=== PATIENT | male | born 1940 | race Caucasian/White ===

== ENCOUNTER 2017-03-03 07:13 | Inpatient (IN) | payer MEDICARE, BC ==
--- NOTE | 2017-03-03 07:17 | EDM.PDOC ---
ED HPI HEAD INJURY - General Chief Complaint: Head Injury Stated Complaint: BY AMBULANCE Time Seen by Provider: 03/03/17 07:17 Source of Information: Reports: Patient, EMS, Old records, RN, RN notes reviewed History Limitations: Reports: Altered mental status - History of Present Illness INITIAL COMMENTS - FREE TEXT/NARRATIVE: Arrives from the [facility] by ambulance with report that pt fell sometime during the night and was found on the floor by staff this morning. Pt does not know what time he fell, but states that he fell and hit his head. Unknown if LOC or not. Pt does not recall falling other than he knows he hit his head, he knows he was on the floor and could not get up, then he woke up on the floor when the staff found him. Pt reports tenderness to the right side of the face and head. He denies headache, N/V, or any other pain. Pt is unable to provide any further Hx. Timing/Duration: Reports: Constant Location: Reports: parietal, temporal, face Quality: Reports: ache Severity: mild Place of Occurrence: other (assisted living apt.) Improves with: none Worsens with: none Context: Reports: fall Associated Symptoms: Reports: no other symptoms - Related Data Allergies/ADRs: Allergies Allergy/AdvReac Type Severity Reaction Status Date / Time No Known Allergies Allergy Unverified 12/24/16 14:02 Home Meds: Home Meds metFORMIN HCl [Metformin HCl] 500 mg PO ATDISCHARGE 08/23/14 [History] Calcium Carbonate 600 mg PO ASDIRECTED 12/24/16 [History] Cyanocobalamin (Vitamin B-12) [B-12] 1,000 mcg SL ASDIRECTED 12/24/16 [History] Enalapril [Vasotec] 20 mg PO BID 12/24/16 [History] Hydrochlorothiazide 25 mg PO DAILY 12/24/16 [History] Metoprolol Succinate [Toprol XL 50mg] 50 mg PO DAILY 12/24/16 [History] Omeprazole [Omeprazole] 20 mg PO DAILY 12/24/16 [History] Potassium Chloride 10 meq PO ASDIRECTED 12/24/16 [History] Past Medical History HEENT History: Reports: Other (see below) Other HEENT History: diabetic eye exam no retinopathy Cardiovascular History: Reports: Hypertension Gastrointestinal History: Reports: Cirrhosis, GI bleed, Jaundice Genitourinary History: Reports: Renal disease, Other (see below) Other Genitourinary History: left renal mass, kidney disease Endocrine/Metabolic History: Reports: Diabetes, type II Hematologic History: Reports: Anemia, Iron deficiency 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) - Past Surgical History GI Surgical History: Reports: Colonoscopy, EGD, Hernia, inguinal Male Surgical History: Reports: Cystectomy, Kidney stone extraction, Lithotripsy (ESWL) Social & Family History - Family History Family Medical History: Noncontributory - Tobacco Use Smoking Status *Q: Never Smoker - Caffeine Use Caffeine Use: Reports: Coffee - Alcohol Use Alcohol Use History: Yes Alcohol Use in Last Twelve Months: No Alcohol Use Frequency: Not Used in over 1 year (History of EtOH abuse, now abstained.) - Recreational Drug Use Recreational Drug Use: No - Living Situation & Occupation Living situation: Reports: alone, assisted living Occupation: retired ED ROS GENERAL - Review of Systems Review Of Systems: ROS reveals no pertinent complaints other than HPI. ED EXAM, HEAD INJURY - Physical Exam Exam: See Below Exam Limited By: Altered mental status General Appearance: alert, no apparent distress, other (frail elderly, chronically ill apprearing) Head: normocephalic, scalp abrasions (right), scalp tenderness (right, with superficial skin tear that has dried and is unable to be repaired), facial abrasions (right with superficial skin tear), facial tenderness (right). No: active bleeding, Tolentino's Sign, flap Nexus Criteria: altered level of consciousness. No: posterior, midline cervical tenderness, evidence of intoxication, focal neurological deficit, painful distracting injuries Eyes: bilateral eye: EOMI, normal inspection, PERRL Ears: normal external exam, normal canal, hearing grossly normal Nose: normal inspection, normal mucousa, no blood Throat/Mouth: Normal lips, Normal teeth, Normal gums, Normal oropharynx, Normal voice, No airway compromise, Other (dry oral membranes) Neck: non-tender, full range of motion, normal alignment, normal inspection Respiratory: no respiratory distress, lungs clear, no accessory muscle use, decreased breath sounds Cardiovascular: normal peripheral pulses, regular rate, rhythm, other (chronic B /L lower extremity edema, improved compared to previous encounter in 12/2016) GI/Abdominal Exam (Abbreviated): normal bowel sounds, soft, non tender, no distention. No: guarding, rigid, rebound Back Exam: normal inspection, full range of motion. No: CVA tenderness (L), CVA tenderness (R), decreased range of motion, muscle spasm, paraspinal tenderness, vertebral tenderness Extremities: normal range of motion, non-tender, pelvis stable. No: bony-point tenderness, pain with movement Neurologic: glass checker II-XII nml as tested, no motor/sensory deficits, alert, normal mood/affect, other (oriented to person only) Skin: Warm/dry, Other (superficial skin tears to right scalp/face, and left elbow) - Giddings Coma Score Best Eye Response (Bouchra): (4) open spontaneously Best Verbal Response (Bouchra): (4) confused conversation Best Motor Response (Giddings): (6) obeys commands Giddings Total: 14 EKG INTERPRETATION EKG Date: 03/03/17 Time: 07:24 Rhythm: other (SR) Rate (beats/min): 91 [place]: LAD-left axis deviation P-wave: present QRS: normal ST-T: normal QT: prolonged Comparison: NA - no prior EKG Course - Vital Signs Last Recorded V/S: see RN entry for VS - Orders/Labs/Meds Orders: Active Orders 24 hr Category Date Time Status EKG 12 Lead [EKG Documentation Completion] [] STAT Care 03/03/17 07:29 Active Peripheral IV Care [RC] . DIRECTED Care 03/03/17 07:30 Active Vaccines to be Administered [RC] PER UNIT ROUTINE Care 03/03/17 07:39 Active DRUG SCREEN URINE BIORAD [URCHEM] Stat Lab 03/03/17 07:30 Uncollected UA W/MICROSCOPIC [URIN] Stat Lab 03/03/17 07:30 Uncollected Sodium Chloride 0.9% [Normal Saline] 1,000 ml Med 03/03/17 07:32 Active IV .BOLUS Sodium Chloride 0.9% [Saline Flush] Med 03/03/17 07:30 Active 10 ml FLUSH ASDIRECTED PRN Peripheral IV Insertion Adult [OM.PC] Stat Oth 03/03/17 07:29 Ordered Medication Orders Sodium Chloride (Normal Saline) 1,000 mls @ 500 mls/hr IV .BOLUS ONE Stop: 03/03/17 09:31 Last Admin: 03/03/17 08:25 Dose: 500 mls/hr Sodium Chloride (Saline Flush) 10 ml FLUSH ASDIRECTED PRN PRN Reason: Keep Vein Open Last Admin: 03/03/17 07:50 Dose: 10 ml Labs: Laboratory Tests 03/03/17 03/03/17 03/03/17 Range/Units 07:45 07:45 07:45 WBC 4.4 L (5.0-10.0) 10^3/uL RBC 2.90 L (4.6-6.2) 10^6/uL Hgb 8.9 L (14.0-18.0) g/dL Hct 26.7 L (40.0-54.0) % MCV 92.1 (80-100) fL MCH 30.7 (27.0-34.0) pg MCHC 33.3 (33.0-35.0) g/dL Plt Count 43 L* (150-450) 10^3/uL Neut % (Auto) 87.8 H (42.2-75.2) % Lymph % (Auto) 2.3 L (20.5-50.1) % Tillman % (Auto) 9.5 H (2-8) % Eos % (Auto) 0.2 L (1.0-3.0) % Baso % (Auto) 0.2 (0.0-1.0) % PT 14.4 H (9.0-12.0) SEC INR 1.4 H (0.9-1.2) APTT 32.3 (22.0-34.0) SEC Sodium 133 L (135-145) mmol/L Potassium 3.9 (3.6-5.0) mmol/L Chloride 94 L (101-111) mmol/L Carbon Dioxide 28.0 (21.0-31.0) mmol/L Anion Gap 14.9 BUN 48 H (7-18) mg/dL Creatinine 2.0 H (0.6-1.3) mg/dL Est Cr Clr Drug Dosing TNP Estimated GFR (MDRD) 33 BUN/Creatinine Ratio 24.00 Glucose 148 H (74-105) mg/dL Calcium 8.9 (8.4-10.2) mg/dl Total Bilirubin 1.4 H (0.2-1.0) mg/dL AST 60 H (10-42) IU/L ALT 31 (10-60) IU/L Alkaline Phosphatase 227 H (42-121) IU/L Ammonia (11-35) umol/L Creatine Kinase 116 (26-174) IU/L Troponin I 0.03 H* (0.00-0.02) ng/ml B-Natriuretic Peptide 50 (0-100) pg/ml Total Protein 5.5 L (6.7-8.2) g/dl Albumin 2.1 L (3.2-5.5) g/dl Globulin 3.4 Albumin/Globulin Ratio 0.62 Amylase 21 L (28-100) U/L Lipase 24 (22-51) U/L Ethyl Alcohol < 5 mg/dL 03/03/17 Range/Units 07:45 WBC (5.0-10.0) 10^3/uL RBC (4.6-6.2) 10^6/uL Hgb (14.0-18.0) g/dL Hct (40.0-54.0) % MCV (80-100) fL MCH (27.0-34.0) pg MCHC (33.0-35.0) g/dL Plt Count (150-450) 10^3/uL Neut % (Auto) (42.2-75.2) % Lymph % (Auto) (20.5-50.1) % Tillman % (Auto) (2-8) % Eos % (Auto) (1.0-3.0) % Baso % (Auto) (0.0-1.0) % PT (9.0-12.0) SEC INR (0.9-1.2) APTT (22.0-34.0) SEC Sodium (135-145) mmol/L Potassium (3.6-5.0) mmol/L Chloride (101-111) mmol/L Carbon Dioxide (21.0-31.0) mmol/L Anion Gap BUN (7-18) mg/dL Creatinine (0.6-1.3) mg/dL Est Cr Clr Drug Dosing Estimated GFR (MDRD) BUN/Creatinine Ratio Glucose (74-105) mg/dL Calcium (8.4-10.2) mg/dl Total Bilirubin (0.2-1.0) mg/dL AST (10-42) IU/L ALT (10-60) IU/L Alkaline Phosphatase (42-121) IU/L Ammonia 111 H (11-35) umol/L Creatine Kinase (26-174) IU/L Troponin I (0.00-0.02) ng/ml B-Natriuretic Peptide (0-100) pg/ml Total Protein (6.7-8.2) g/dl Albumin (3.2-5.5) g/dl Globulin Albumin/Globulin Ratio Amylase (28-100) U/L Lipase (22-51) U/L Ethyl Alcohol mg/dL Meds: Medications Generic Name Dose Route Start Last Admin Trade Name Freq PRN Reason Stop Dose Admin Sodium Chloride 1,000 mls @ 500 mls/hr 03/03/17 07:32 03/03/17 08:25 Normal Saline IV 03/03/17 09:31 500 mls/hr .BOLUS ONE Administration Sodium Chloride 10 ml 03/03/17 07:30 03/03/17 07:50 Saline Flush FLUSH 10 ml ASDIRECTED PRN Administration Keep Vein Open Discontinued Medications Generic Name Dose Route Start Last Admin Trade Name Freq PRN Reason Stop Dose Admin Bacitracin 1 dose 03/03/17 08:40 03/03/17 08:46 Bacitracin Oint 1 Gm TOP 03/03/17 08:41 1 dose ONETIME ONE Administration Diphtheria/Tetanus/Acell Pertussis 0.5 ml 03/03/17 07:39 03/03/17 08:19 Adacel IM 03/03/17 07:40 0.5 ml .ONCE ONE Administration Lactulose 20 gm 03/03/17 08:42 03/03/17 08:54 Cephulac PO 03/03/17 08:43 20 gm ONETIME ONE Administration - Radiology Interpretation Free Text/Narrative:: CXR: no acute process, see Rad. report. CT Head: no I.C. hemorrhage, no acute process per Rad. report. CT Results Date: 03/03/17 Departure - Departure Time of Disposition: 09:10 (admit to Dr. Boo) Disposition: Admitted As Inpatient 68 Condition: serious Clinical Impression: Acute hepatic encephalopathy, Pancytopenia Scalp abrasion Qualifiers: Encounter type: initial encounter Qualified Code(s): S00.01XA - Abrasion of scalp, initial encounter Abrasion of face Qualifiers: Encounter type: initial encounter Qualified Code(s): S00.81XA - Abrasion of other part of head, initial encounter Scalp contusion Qualifiers: Encounter type: initial encounter Qualified Code(s): S00.03XA - Contusion of scalp, initial encounter Contusion of face Qualifiers: Encounter type: initial encounter Qualified Code(s): S00.83XA - Contusion of other part of head, initial encounter Contusion of right shoulder Qualifiers: Encounter type: initial encounter Qualified Code(s): S40.011A - Contusion of right shoulder, initial encounter Skin tear of left elbow without complication Qualifiers: Encounter type: initial encounter Qualified Code(s): S51.012A - Laceration without foreign body of left elbow, initial encounter Forms: ED Department Discharge - My Orders Last 24 Hours: My Active Orders 03/03/17 07:29 EKG 12 Lead [EKG Documentation Completion] [RC] STAT Peripheral IV Insertion Adult [OM.PC] Stat 03/03/17 07:30 Peripheral IV Care [RC] . DIRECTED DRUG SCREEN URINE BIORAD [URCHEM] Stat UA W/MICROSCOPIC [URIN] Stat Sodium Chloride 0.9% [Saline Flush] 10 ml FLUSH ASDIRECTED PRN 03/03/17 07:32 Sodium Chloride 0.9% [Normal Saline] 1,000 ml IV .BOLUS 03/03/17 07:39 Vaccines to be Administered [RC] PER UNIT ROUTINE - Assessment/Plan Last 24 Hours: My Active Orders 03/03/17 07:29 EKG 12 Lead [EKG Documentation Completion] [RC] STAT Peripheral IV Insertion Adult [OM.PC] Stat 03/03/17 07:30 Peripheral IV Care [RC] . DIRECTED DRUG SCREEN URINE BIORAD [URCHEM] Stat UA W/MICROSCOPIC [URIN] Stat Sodium Chloride 0.9% [Saline Flush] 10 ml FLUSH ASDIRECTED PRN 03/03/17 07:32 Sodium Chloride 0.9% [Normal Saline] 1,000 ml IV .BOLUS 03/03/17 07:39 Vaccines to be Administered [RC] PER UNIT ROUTINE
[2017-03-03] MEDS ORDERED: Sodium Chloride 0.9% 1,000 ML IV ONE (07:32)
[2017-03-03] MEDS ORDERED: Diphtheria,Pertussis(Acell),Tetanus Vaccine 0.5 ML SDV IM ONE (07:39)
[2017-03-03] MEDS: Sodium Chloride 0.9% 10 ML Syringe FLUSH PRN (07:50)
[2017-03-03 08:06] LABS: CHLORIDE,CL 94 mmol/L (101-111); SODIUM,NA 133 mmol/L (135-145)
--- NOTE | 2017-03-03 08:09 | CR ---
Clinical history: 77-year-old male resident half-way found unresponsive on the floor. Interpretation: *AP chest reveals some bronchitic reactive changes and subtle asymmetric patchy ling ular infiltrate (aspiration?). Left supraclavicular central venous port, line crossing mediastinum. Normal cardiac silhouette without alveolar edema or dependent effusion. No lung mass, hilar lymphadenopathy or other focal lobar infiltrate/atelectasis. No pneumothorax.
--- NOTE | 2017-03-03 08:16 | CT ---
Clinical history: 77-year-old male resident of assisted found unresponsive on the floor (fall an d head injury). Scan technique: Volume acquisition of data emergency unenhanced CT scan of the head obtained with pa tient lying supine on the Siemens multi slice CT scanner [facility]. All data archived in the PACS system for storage and study (bone/brain windows). Interpretation: 1. Isolated small retention cyst or polyp in the right maxillary antrum. No acute inflammation. 2. Uniformly thick bony calvarium without sign of skull fracture, underlying brain contusion or epid ural/subdural hematoma. 3. Multiple scattered areas of decreased attenuation throughout the periventricular white matter bot h cerebral hemispheres characteristic of microvascular ischemic infarcts. Atrophy. 4. No supratentorial or posterior fossa mass lesion. No hydrocephalus. 5. No signs of acute intracerebral/intraventricular/subarachnoid bleed. 6. Brainstem unremarkable but asymmetric focal area of infarct cerebellum, on the left. CONCLUSION: Abnormal. Multi-infarct ischemic disease (no comparison exams). No sign of skull fractur e, closed head trauma, intracranial mass, hydrocephalus or bleed. Maxillary cyst.
[2017-03-03] MEDS ORDERED: Bacitracin Oint 1 GM U/D Packet TOP ONE (08:40)
[2017-03-03] MEDS ORDERED: Lactulose Soln 10 GM/15 ML 30 ML UD Cup PO ONE (08:42)
--- NOTE | 2017-03-03 10:29 | PCM.HP ---
H&P History of Present Illness - General Date of Service: 03/03/17 Admit Problem/Dx: Admission Diagnosis/Problem Admission Diagnosis/Problem Encephalopathy Source of Information: Patient History Limitations: Reports: Altered Mental Status - History of Present Illness Initial Comments - Free Text/Narative: Mr. Patel is a 77 year old male was brought in today because of altered mental status. when he was seen in the clinic, he was noted to be drowsy and still able to give some history. patient recollects that he fell in the bathroom last night, hit his head on something. Was found in the floor this morning and noticed some confusion. When asked, he reports that he is in [facility]. On encounter with him, he denies any headache, nausea, chest pain, abdominal pain. he recently had radiation as part of his chemoradiation treatment for his duodenal cancer. recent labs showed Bicytopenia with low WBC and hemoglobin and normal platelets. On further review of labs, he had thrombocytopenia last . He has some briuse on the the left forearm which the ER provider mentioned is nothing new. On discussion with ER MD, patient was seen in the ER in the past was noted to have ascites, GI bleed and leg edema and that time he was then diagnosed with duodenal cancer when patient was shifted to [facility]. currently, abdomen is non tender and non distended and legs are not swollen compared to before. Head Pain Score (Numeric/FACES): 8 - Related Data Allergies/Adverse Reactions: Allergies Allergy/AdvReac Type Severity Reaction Status Date / Time No Known Allergies Allergy Verified 05/27/17 07:57 Home Medications: Home Meds Potassium Chloride 20 meq PO DAILY 12/24/16 [History] Bumetanide [Bumex] 1 mg PO DAILY 03/03/17 [History] Spironolactone [Aldactone] 25 mg PO BID 03/03/17 [History] Folic Acid 1 mg PO DAILY 05/15/17 [History] Iron Polysaccharide Complex [Ferrex 150] 150 mg PO DAILY 05/15/17 [History] Lactulose [Cephulac] 15 gm PO TID 05/15/17 [History] Omeprazole [Omeprazole] 20 mg PO ACBREAKFAST 05/15/17 [History] Insulin Aspart [Novolog Flexpen] 3 units SQ WITHDINNER 05/17/17 [History] Calcium Carbonate [Tums] 500 mg PO BID PRN 05/19/17 [History] Docusate Sodium [Colace] 100 mg PO BID 05/19/17 [History] Insulin Glarg,Human.Rec.Analog [Lantus] 18 units SQ BEDTIME 05/19/17 [History] Moxifloxacin [Vigamox 0.5% Ophth Soln] 1 drop EYEBOTH QID 05/19/17 [History] Nystatin [Nystop] 1 gm TOP BID PRN 05/19/17 [History] Calcium Polycarbophil [Fibercon] 1 tab PO BID 05/20/17 [History] Ketorolac [Acular 0.5% Ophth Soln] 1 drop EYELF BID 05/22/17 [History] Past Medical History HEENT History: Reports: Other (See Below) Other HEENT History: diabetic eye exam no retinopathy Cardiovascular History: Reports: Hypertension Gastrointestinal History: Reports: Cirrhosis, GI Bleed, Jaundice Genitourinary History: Reports: Renal Disease, Other (See Below) Other Genitourinary History: left renal mass, kidney disease Endocrine/Metabolic History: Reports: Diabetes, Type II Hematologic History: Reports: Anemia, Iron Deficiency 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 Just finished round of chemo and radiation 02/27/2017 - Past Surgical History GI Surgical History: Reports: Colonoscopy, EGD, Hernia, Inguinal Male Surgical History: Reports: Cystectomy, Kidney Stone Extraction, Lithotripsy ([facility]) Social & Family History - Family History Family Medical History: Noncontributory - Tobacco Use Smoking Status *Q: Never Smoker - Caffeine Use Caffeine Use: Reports: Coffee - Recreational Drug Use Recreational Drug Use: No - Living Situation & Occupation Living situation: Reports: Alone, Assisted Living Occupation: Retired H&P Review of Systems - Review of Systems: Review Of Systems: Unable To Obtain Exam - Exam Exam: See Below - Vital Signs Vital Signs: Last Vital Signs Temp 36.6 C 03/03/17 09:53 Pulse 88 03/03/17 09:53 Resp 20 03/03/17 09:53 BP 148/63 H 03/03/17 09:53 Pulse Ox 97 03/03/17 09:53 Weight: 95.254 kg - Exam Quality Assessment: Skin Breakdown General: Other (drowsy but able to answer questions) HEENT: Conjunctiva Clear, EOMI, Hearing Intact Lungs: Normal Respiratory Effort Cardiovascular: Regular Rate, Regular Rhythm Abdomen: Normal Bowel Sounds, Soft, Other (no distention nor tenderness) Extremities: Other (no pitting edema; hyperpigmentation on distal aspect of both lower extremities) Peripheral Pulses: 0: Carotid (R) Neuro Extensive - Mental Status: Disorientation to Place - Patient Data Result Diagrams: 03/06/17 05:40 03/06/17 05:40 *Q Meaningful Use (ADM) - VTE *Q VTE Criteria *Q: VTE Anticoagulation Contraindications: Med/TX Not Indicated/Need - Stroke *Q Stroke Criteria *Q: - AMI *Q AMI Criteria *Q: Problem List Initiated/Reviewed/Updated: Yes Orders Last 24hrs: Active Orders 24 hr Category Date Time Status Patient Status [ADT] Routine ADT 03/03/17 10:12 Ordered Blood Glucose Check, Bedside [RC] QIDACANDBED Care 03/03/17 10:17 Ordered Intake and Output Strict [RC] ASDIRECTED Care 03/03/17 10:18 Ordered Neuro Check [RC] Q4HR Care 03/03/17 10:17 Ordered Oxygen Therapy [RC] PRN Care 03/03/17 10:12 Ordered Up With Assistance [RC] ASDIRECTED Care 03/03/17 10:12 Ordered VTE/DVT Education [RC] PER UNIT ROUTINE Care 03/03/17 10:12 Ordered Vital Signs [RC] Q4H Care 03/03/17 10:12 Ordered Weight, Daily [Height and Weight] [RC] DAILY Care 03/03/17 10:17 Ordered CBC WITH AUTO DIFF [HEME] Routine Lab 03/04/17 06:00 Ordered CULTURE BLOOD [BC] Stat Lab 03/03/17 10:14 Ordered CULTURE BLOOD [BC] Stat Lab 03/03/17 10:14 Ordered Bumetanide [Bumex] Med 03/04/17 09:00 Ordered 1 mg PO DAILY Calcium Carbonate Med 03/03/17 10:30 Ordered 500 mg PO ASDIRECTED Calcium Polycarbophil [Calcium Polycarbophil] Med 03/03/17 21:00 Ordered 1 tab PO BID Ferrous Sulfate Med 03/04/17 09:00 Ordered 1 tab PO DAILY Insulin Glargine,Hum.Rec.Anlog [Vernar Kwikpen U-100] Med 03/04/17 09:00 Ordered 25 units SUBCUT DAILY Lactulose [Lactulose] Med 03/03/17 21:00 Ordered 15 ml PO BID Nystatin Med 03/03/17 13:00 Ordered 5 ml PO QID Pantoprazole [ProTONIX] Med 03/04/17 09:00 Ordered 1 tab PO DAILY Potassium Chloride [Potassium Chloride] Med 03/04/17 09:00 Ordered 20 meq PO DAILY Spironolactone [Aldactone] Med 03/03/17 21:00 Ordered 25 mg PO BID Anticoagulation Contraindications VTE [AST] Per Unit Ot 03/03/17 10:12 Ordered Routine Blood Culture x2 Reflex Set [OM.PC] Stat Ot 03/03/17 10:14 Ordered Medication Orders Bumetanide (Bumex) 1 mg PO DAILY [facility] Ferrous Sulfate (Ferrous Sulfate) mg PO DAILY [facility] Non-Formulary Medication (Calcium Carbonate) 500 mg PO ASDIRECTED [facility] Non-Formulary Medication (Calcium Polycarbophil [Calcium Polycarbophil]) 1 tab PO BID [facility] Non-Formulary Medication (Insulin Glargine,Hum.Rec.Anlog [Basaglar Kwikpen U-100 ]) 25 units SUBCUT DAILY [facility] Non-Formulary Medication (Lactulose [Lactulose]) 15 ml PO BID [facility] Non-Formulary Medication (Nystatin) 5 ml PO QID [facility] Non-Formulary Medication (Potassium Chloride [Potassium Chloride]) 20 meq PO DAILY [facility] Pantoprazole Sodium (Protonix) mg PO DAILY [facility] Sodium Chloride (Saline Flush) 10 ml FLUSH ASDIRECTED PRN PRN Reason: Keep Vein Open Last Admin: 03/03/17 07:50 Dose: 10 ml Spironolactone (Aldactone) 25 mg PO BID [facility] Assessment/Plan Comment:: Altered mental status - most likely hepatic encephalopahy: CT scan normal; no signs of hypoglycemia ; ammonia elevated at 111, previous ammonia level was 20; he was already given lactulose in the emergency room, monitor for bowel movement; he was on lactulose BID based on home meds, may need to be incease to aim for around 3 stools in a day - blood cultures and urinalysis ordered - neurochecks Pancytopenia; platelets has decreased from baseline, monitor for signs of bleeding;recheck CBC chronic liver disease; on Bumex and aldactone, resum,e; do daily weights and strict input and output; fluid restrictions Diabetes Mellitus; diabetic diet; glucochecks before meals and bedtime;resume insulin HIstory of duodenal cancer: outpatient follow up with Dr. Caballero DVT Prophylaxis: anticoagulation contraindicated due to thrombocytopenia; do BALDEMAR hose instead
[2017-03-03] MEDS ORDERED: Calcium Carbonate 500 MG Tab.Chew PO SCH (10:45)
[2017-03-03] MEDS: Insulin Aspart 100 Units/ML 3 ML Pen SUBCUT SCH ×3 (13:38→21:02)
[2017-03-03] MEDS: Nystatin Susp 100,000 Unit/ML 5 ML UD Cup PO SCH ×3 (13:39→20:48)
[2017-03-03] MEDS: Spironolactone 25 MG Tab PO SCH (20:44)
[2017-03-03] MEDS: Lactulose Soln 10 GM/15 ML 30 ML UD Cup PO SCH (20:44)
[2017-03-03] MEDS: Calcium Polycarbophil 625 MG Tab PO SCH (20:44)
[2017-03-03] MEDS: Nystatin Topical Powder 30 GM Bottle TOP SCH (20:50)
[2017-03-04] MEDS: Pantoprazole 40 MG Tab.CR PO SCH (05:44)
[2017-03-04] MEDS: Insulin Aspart 100 Units/ML 3 ML Pen SUBCUT SCH ×4 (08:37→21:45)
[2017-03-04] MEDS: Calcium Carbonate 500 MG Tab.Chew PO SCH (08:38)
[2017-03-04] MEDS: Calcium Polycarbophil 625 MG Tab PO SCH ×2 (08:38→21:44)
[2017-03-04] MEDS: Potassium Chloride 10 MEQ Tab.ER PO SCH (08:38)
[2017-03-04] MEDS: Bumetanide 1 MG Tab PO SCH (08:39)
[2017-03-04] MEDS: Spironolactone 25 MG Tab PO SCH ×2 (08:39→21:44)
[2017-03-04] MEDS: Ferrous Sulfate 325 MG Tab PO SCH (08:39)
[2017-03-04] MEDS: Lactulose Soln 10 GM/15 ML 30 ML UD Cup PO SCH ×3 (08:39→21:43)
[2017-03-04] MEDS: Nystatin Topical Powder 30 GM Bottle TOP SCH ×2 (08:40→21:45)
[2017-03-04] MEDS: Nystatin Susp 100,000 Unit/ML 5 ML UD Cup PO SCH ×4 (08:45→21:44)
[2017-03-04] MEDS: Insulin Detemir 100 Units/ML 3 ML Pen SUBCUT SCH (08:45)
--- NOTE | 2017-03-04 10:55 | PCM.PN ---
- General Info Date of Service: 03/04/17 Admission Dx/Problem (Free Text): Patient is more awake today; he reports that he had a bowel movement yesterday, but nursing report that he had two bowel movements; he denies any chest pain nor abdominal pain; he recollects that the reason why he is in the hospital is that he fell in the bathroom; Talked with the nurse of [facility] in [place] and she reported that when mr. Patel was there, he used to ambulate well with the aid of the walker. He is oriented most of the time, with no problems with the memory. he has been having normal bowel movements then. - Patient Data Vitals - most recent: Last Vital Signs Temp 37.0 C 03/04/17 07:00 Pulse 86 03/04/17 07:00 Resp 20 03/04/17 07:00 BP 134/54 L 03/04/17 07:00 Pulse Ox 98 03/04/17 07:00 Weight - most recent: 76.294 kg Med Orders - Current: Current Medications Bumetanide (Bumex) 1 mg PO DAILY [facility] Last Admin: 03/04/17 08:39 Dose: 1 mg Calcium Carbonate/Glycine (Tums) 500 mg PO DAILY [facility] Last Admin: 03/04/17 08:38 Dose: 500 mg Calcium Polycarbophil (Fibercon) 625 mg PO BID [facility] Last Admin: 03/04/17 08:38 Dose: 625 mg Ferrous Sulfate (Ferrous Sulfate) 325 mg PO DAILY [facility] Last Admin: 03/04/17 08:39 Dose: 325 mg Insulin Aspart (Novolog) 0 unit SUBCUT QIDACANDBED [facility] PRN Reason: Protocol Last Admin: 03/04/17 08:37 Dose: Not Given Insulin Detemir (Levemir) 25 unit SUBCUT DAILY [facility] Last Admin: 03/04/17 08:45 Dose: 25 units Lactulose (Cephulac) 15 gm PO TID [facility] Nystatin (Mycostatin) 5 ml PO QID [facility] Stop: 04/02/17 23:59 Last Admin: 03/04/17 08:45 Dose: 5 ml Nystatin (Nystop) 1 gm TOP BID [facility] Last Admin: 03/04/17 08:40 Dose: 1 applic Pantoprazole Sodium (Protonix) 40 mg PO ACBRK [facility] Last Admin: 03/04/17 05:44 Dose: 40 mg Potassium Chloride (Klor-Con 10) 20 meq PO DAILY [facility] Last Admin: 03/04/17 08:38 Dose: 20 meq Sodium Chloride (Saline Flush) 10 ml FLUSH ASDIRECTED PRN PRN Reason: Keep Vein Open Last Admin: 03/03/17 07:50 Dose: 10 ml Spironolactone (Aldactone) 25 mg PO BID [facility] Last Admin: 03/04/17 08:39 Dose: 25 mg Discontinued Medications Bacitracin (Bacitracin Oint 1 Gm) 1 dose TOP ONETIME ONE Stop: 03/03/17 08:41 Last Admin: 03/03/17 08:46 Dose: 1 dose Calcium Carbonate/Glycine (Tums) 500 mg PO ASDIRECTED [facility] Diphtheria/Tetanus/Acell Pertussis (Adacel) 0.5 ml IM .ONCE ONE Stop: 03/03/17 07:40 Last Admin: 03/03/17 08:19 Dose: 0.5 ml Sodium Chloride (Normal Saline) 1,000 mls @ 500 mls/hr IV .BOLUS ONE Stop: 03/03/17 09:31 Last Admin: 03/03/17 08:25 Dose: 500 mls/hr Lactulose (Cephulac) 20 gm PO ONETIME ONE Stop: 03/03/17 08:43 Last Admin: 03/03/17 08:54 Dose: 20 gm Lactulose (Cephulac) 15 gm PO BID [facility] Last Admin: 03/04/17 08:39 Dose: 15 gm - Exam General: alert, oriented Lungs: Normal respiratory effort Cardiovascular: Regular Rate, Regular Rhythm Abdomen: bowel sounds present, soft, no tenderness Skin: other (skin tear on the right temporal area) - Problem List Review Problem List Initiated/Reviewed/Updated: Yes - My Orders Last 24 Hours: My Active Orders 03/04/17 14:00 Lactulose [Cephulac] 15 gm PO TID - Plan Plan:: Altered mental status - most likely hepatic encephalopahy: CT scan normal; no signs of hypoglycemia ; ammonia elevated at 111, previous ammonia level was 20; - increase lactulose to TID - infectious work up was ordered; await results - coags have been pancytopenic but stable History of Fall - refer to PT for ambulation Pancytopenia; platelets has decreased from baseline, monitor for signs of bleeding;recheck CBC chronic liver disease; on Bumex and aldactone, resume; do daily weights and strict input and output; fluid restrictions Diabetes Mellitus; diabetic diet; glucochecks before meals and bedtime;resume insulin 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
[2017-03-05] MEDS: Sodium Chloride 0.9% 10 ML Syringe FLUSH PRN (00:34)
[2017-03-05] MEDS: Pantoprazole 40 MG Tab.CR PO SCH (05:49)
[2017-03-05] MEDS: Insulin Aspart 100 Units/ML 3 ML Pen SUBCUT SCH ×4 (09:34→22:29)
[2017-03-05] MEDS: Lactulose Soln 10 GM/15 ML 30 ML UD Cup PO SCH ×3 (09:34→22:14)
[2017-03-05] MEDS: Potassium Chloride 10 MEQ Tab.ER PO SCH (09:37)
[2017-03-05] MEDS: Ferrous Sulfate 325 MG Tab PO SCH (09:37)
[2017-03-05] MEDS: Calcium Polycarbophil 625 MG Tab PO SCH ×2 (09:37→22:13)
[2017-03-05] MEDS: Bumetanide 1 MG Tab PO SCH (09:37)
[2017-03-05] MEDS: Insulin Detemir 100 Units/ML 3 ML Pen SUBCUT SCH (09:37)
[2017-03-05] MEDS: Spironolactone 25 MG Tab PO SCH ×2 (09:37→22:13)
[2017-03-05] MEDS: Nystatin Susp 100,000 Unit/ML 5 ML UD Cup PO SCH ×4 (09:37→22:13)
[2017-03-05] MEDS: Calcium Carbonate 500 MG Tab.Chew PO SCH (09:37)
[2017-03-05] MEDS: Nystatin Topical Powder 30 GM Bottle TOP SCH ×2 (09:38→22:15)
[2017-03-05] MEDS: Sodium Chloride 0.9% 10 ML Syringe IV SCH ×2 (09:38→22:23)
--- NOTE | 2017-03-05 11:02 | PCM.PN ---
- General Info Date of Service: 03/05/17 Admission Dx/Problem (Free Text): admitted after a fall With an acute encephalopathy Subjective Update: feeling well today, he has been off and walking with a walker with the help of physical therapy, Having bowel movements has indwelling Urinary catheter no apparent fever, no complaints of chills abdomen pain No shortness of breath, no chest pain - Review of Systems General: Reports: No Symptoms HEENT: Reports: no symptoms Pulmonary: Denies: shortness of breath Cardiovascular: Denies: Chest Pain Gastrointestinal: Denies: Abdominal pain Neurological: Reports: Difficulty Walking (Need a walker). Denies: Confusion - Patient Data Vitals - most recent: Last Vital Signs Temp 36.4 C 03/05/17 07:00 Pulse 89 03/05/17 07:00 Resp 20 03/05/17 07:00 BP 130/54 L 03/05/17 07:00 Pulse Ox 99 03/05/17 07:00 Weight - most recent: 75.614 kg I&O - last 24 hours: Intake & Output 03/04/17 03/05/17 03/05/17 22:59 06:59 14:59 Intake Total 150 Output Total 1000 Balance -850 Lab Results last 24 hrs: Laboratory Results - last 24 hr 03/04/17 03/04/17 03/04/17 Range/Units 07:42 11:03 17:05 WBC (5.0-10.0) 10^3/uL RBC (4.6-6.2) 10^6/uL Hgb (14.0-18.0) g/dL Hct (40.0-54.0) % MCV (80-100) fL MCH (27.0-34.0) pg MCHC (33.0-35.0) g/dL Plt Count (150-450) 10^3/uL POC Glucose 115 H 203 H 165 H (83-110) mg/dl 03/04/17 03/05/17 03/05/17 Range/Units 21:15 06:53 07:54 WBC 3.8 L (5.0-10.0) 10^3/uL RBC 2.72 L (4.6-6.2) 10^6/uL Hgb 8.4 L (14.0-18.0) g/dL Hct 25.7 L (40.0-54.0) % MCV 94.5 (80-100) fL MCH 30.9 (27.0-34.0) pg MCHC 32.7 L (33.0-35.0) g/dL Plt Count 68 L (150-450) 10^3/uL POC Glucose 95 72 L (83-110) mg/dl Nikos Results last 24 hrs: Microbiology 03/03/17 10:40 Aerobic Blood Culture - Preliminary Blood - Venous - Lab Draw NO GROWTH AFTER 2 DAYS Anaerobic Blood Culture - Final 03/03/17 10:35 Aerobic Blood Culture - Preliminary Blood - Venous NO GROWTH AFTER 2 DAYS Anaerobic Blood Culture - Preliminary NO GROWTH AFTER 2 DAYS Med Orders - Current: Current Medications Bumetanide (Bumex) 1 mg PO DAILY [facility] Last Admin: 03/05/17 09:37 Dose: 1 mg Calcium Carbonate/Glycine (Tums) 500 mg PO DAILY [facility] Last Admin: 03/05/17 09:37 Dose: 500 mg Calcium Polycarbophil (Fibercon) 625 mg PO BID [facility] Last Admin: 03/05/17 09:37 Dose: 625 mg Ferrous Sulfate (Ferrous Sulfate) 325 mg PO DAILY [facility] Last Admin: 03/05/17 09:37 Dose: 325 mg Insulin Aspart (Novolog) 0 unit SUBCUT QIDACANDBED [facility] PRN Reason: Protocol Last Admin: 03/05/17 09:34 Dose: Not Given Insulin Detemir (Levemir) 25 unit SUBCUT DAILY [facility] Last Admin: 03/05/17 09:37 Dose: 25 units Lactulose (Cephulac) 15 gm PO TID [facility] Last Admin: 03/05/17 09:34 Dose: 15 gm Nystatin (Mycostatin) 5 ml PO QID [facility] Stop: 04/02/17 23:59 Last Admin: 03/05/17 09:37 Dose: 5 ml Nystatin (Nystop) 1 gm TOP BID [facility] Last Admin: 03/05/17 09:38 Dose: 1 applic Pantoprazole Sodium (Protonix) 40 mg PO ACBRK [facility] Last Admin: 03/05/17 05:49 Dose: 40 mg Potassium Chloride (Klor-Con 10) 20 meq PO DAILY [facility] Last Admin: 03/05/17 09:37 Dose: 20 meq Sodium Chloride (Saline Flush) 10 ml FLUSH ASDIRECTED PRN PRN Reason: Keep Vein Open Last Admin: 03/05/17 00:34 Dose: 10 ml Sodium Chloride (Saline Flush) 10 ml IV BID [facility] Last Admin: 03/05/17 09:38 Dose: 10 ml Spironolactone (Aldactone) 25 mg PO BID [facility] Last Admin: 03/05/17 09:37 Dose: 25 mg Discontinued Medications Bacitracin (Bacitracin Oint 1 Gm) 1 dose TOP ONETIME ONE Stop: 03/03/17 08:41 Last Admin: 03/03/17 08:46 Dose: 1 dose Calcium Carbonate/Glycine (Tums) 500 mg PO ASDIRECTED [facility] Diphtheria/Tetanus/Acell Pertussis (Adacel) 0.5 ml IM .ONCE ONE Stop: 03/03/17 07:40 Last Admin: 03/03/17 08:19 Dose: 0.5 ml Sodium Chloride (Normal Saline) 1,000 mls @ 500 mls/hr IV .BOLUS ONE Stop: 03/03/17 09:31 Last Admin: 03/03/17 08:25 Dose: 500 mls/hr Lactulose (Cephulac) 20 gm PO ONETIME ONE Stop: 03/03/17 08:43 Last Admin: 03/03/17 08:54 Dose: 20 gm Lactulose (Cephulac) 15 gm PO BID [facility] Last Admin: 03/04/17 08:39 Dose: 15 gm - Exam General: alert, oriented HEENT: Other (right facial abrasion) Neck: supple Lungs: Decreased breath sounds Cardiovascular: Regular Rate, Regular Rhythm Extremities: no edema Neurological: no new focal deficit Psy/Mental Status: alert, normal affect, normal mood - Problem List & Annotations (1) Acute hepatic encephalopathy SNOMED Code(s): 93589288 Code(s): K72.00 - ACUTE AND SUBACUTE HEPATIC FAILURE WITHOUT COMA Status: Acute Current Visit: Yes (2) Scalp abrasion SNOMED Code(s): 295457499 Code(s): S00.01XA - ABRASION OF SCALP, INITIAL ENCOUNTER Status: Acute Current Visit: Yes Qualifiers: Encounter type: initial encounter Qualified Code(s): S00.01XA - Abrasion of scalp, initial encounter - Problem List Review Problem List Initiated/Reviewed/Updated: Yes - My Orders Last 24 Hours: My Active Orders 03/04/17 19:50 Communication Order [RC] 08,03/05/17 09:00 Sodium Chloride 0.9% [Saline Flush] 10 ml IV BID 03/05/17 10:52 Remove Blankenship Catheter [Urinary Catheter Removal] [RC] Per Unit Routine 03/05/17 10:55 OT Evaluation and Treatment [CONS] Routine 03/06/17 05:15 BASIC METABOLIC PANEL,BMP [CHEM] AM CBC WITH AUTO DIFF [HEME] AM - Plan Plan:: Altered mental status - most likely acute hepatic encephalopahy: CT scan normal; no signs of hypoglycemia; ammonia elevated at 111, previous ammonia level was 20; - improved by now - continue with increased lactulose to TID - infectious work up: blood cultures negative - coags have been pancytopenic but stable History of Fall, decision about appropriate discharge planning - PT for ambulation - request ot evaluation Pancytopenia; monitor for signs of bleeding;recheck CBC in the morning chronic liver disease; on Bumex and aldactone, remove Blankenship catheter today Diabetes Mellitus; diabetic diet; glucochecks before meals and bedtime;continue insulin 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
[2017-03-06] MEDS: Pantoprazole 40 MG Tab.CR PO SCH (06:21)
[2017-03-06] MEDS: Insulin Aspart 100 Units/ML 3 ML Pen SUBCUT SCH (07:56)
[2017-03-06] MEDS: Calcium Polycarbophil 625 MG Tab PO SCH (08:43)
[2017-03-06] MEDS: Spironolactone 25 MG Tab PO SCH (08:43)
[2017-03-06] MEDS: Ferrous Sulfate 325 MG Tab PO SCH (08:43)
[2017-03-06] MEDS: Bumetanide 1 MG Tab PO SCH (08:43)
[2017-03-06] MEDS: Nystatin Susp 100,000 Unit/ML 5 ML UD Cup PO SCH (08:43)
[2017-03-06] MEDS: Nystatin Topical Powder 30 GM Bottle TOP SCH (08:44)
[2017-03-06] MEDS: Potassium Chloride 10 MEQ Tab.ER PO SCH (08:44)
[2017-03-06] MEDS: Calcium Carbonate 500 MG Tab.Chew PO SCH (08:44)
[2017-03-06] MEDS: Lactulose Soln 10 GM/15 ML 30 ML UD Cup PO SCH (08:44)
[2017-03-06] MEDS: Sodium Chloride 0.9% 10 ML Syringe IV SCH (08:44)
[2017-03-06] MEDS: Insulin Detemir 100 Units/ML 3 ML Pen SUBCUT SCH (08:45)
--- NOTE | 2017-03-06 09:09 | PCM.DCSUM1 ---
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 - Discharge Data Discharge Date: 03/06/17 Discharge Disposition: DC/[facility] to [facility] Condition: Stable - Discharge Diagnosis/Problem(s) (1) Acute hepatic encephalopathy SNOMED Code(s): 38465789 ICD Code: K72.00 - ACUTE AND SUBACUTE HEPATIC FAILURE WITHOUT COMA Status: Acute Current Visit: Yes (2) Scalp abrasion SNOMED Code(s): 279969355 ICD Code: S00.01XA - ABRASION OF SCALP, INITIAL ENCOUNTER Status: Acute Current Visit: Yes Qualifiers: Encounter type: initial encounter Qualified Code(s): S00.01XA - Abrasion of scalp, initial encounter - Patient Summary/Data Consults: Consultations 03/05/17 10:55 OT Evaluation and Treatment [CONS] Routine - Patient Instructions Diet: Heart Healthy Diet Activity: As Tolerated - Discharge Plan Prescriptions/Med Rec: Lactulose [Cephulac] 15 gm PO TID #240 ml Home Medications: Home Meds Calcium Carbonate 500 mg PO ASDIRECTED 12/24/16 [History] Potassium Chloride 20 meq PO DAILY 12/24/16 [History] Bumetanide [Bumex] 1 mg PO DAILY 03/03/17 [History] Calcium Polycarbophil 1 tab PO BID 03/03/17 [History] Ferrous Sulfate 1 tab PO DAILY 03/03/17 [History] Insulin Glargine,Hum.Rec.Anlog [Basaglar Kwikpen U-100] 25 units SUBCUT DAILY [History] Nystatin 5 ml PO QID MDD end 03/12/2017 03/03/17 [History] Pantoprazole Sodium [Protonix] 1 tab PO DAILY 03/03/17 [History] Spironolactone [Aldactone] 25 mg PO BID 03/03/17 [History] Lactulose [Cephulac] 15 gm PO TID #240 ml 03/06/17 [Rx] - Discharge Summary/Plan Comment DC Time >30 min.: No - Patient Data Vitals - Most Recent: Last Vital Signs Temp 37.0 C 03/05/17 19:41 Pulse 83 03/06/17 04:00 Resp 20 03/06/17 04:00 BP 116/56 L 03/06/17 04:00 Pulse Ox 100 03/06/17 04:00 Weight - Most Recent: 74.843 kg I&O - Last 24 hours: Intake & Output 03/05/17 03/06/17 03/06/17 22:59 06:59 14:59 Intake Total 600 125 Output Total 600 Balance 0 125 Lab Results - Last 24 hrs: Laboratory Results - last 24 hr 03/05/17 03/05/17 03/05/17 Range/Units 11:03 16:58 21:11 WBC (5.0-10.0) 10^3/uL RBC (4.6-6.2) 10^6/uL Hgb (14.0-18.0) g/dL Hct (40.0-54.0) % MCV (80-100) fL MCH (27.0-34.0) pg MCHC (33.0-35.0) g/dL Plt Count (150-450) 10^3/uL Neut % (Auto) (42.2-75.2) % Lymph % (Auto) (20.5-50.1) % Amelia % (Auto) (2-8) % Eos % (Auto) (1.0-3.0) % Baso % (Auto) (0.0-1.0) % Sodium (135-145) mmol/L Potassium (3.6-5.0) mmol/L Chloride (101-111) mmol/L Carbon Dioxide (21.0-31.0) mmol/L Anion Gap BUN (7-18) mg/dL Creatinine (0.6-1.3) mg/dL Est Cr Clr Drug Dosing mL/min Estimated GFR (MDRD) Glucose (74-105) mg/dL POC Glucose 172 H 91 88 (83-110) mg/dl Calcium (8.4-10.2) mg/dl Ammonia (11-35) umol/L 03/06/17 03/06/17 03/06/17 Range/Units 05:40 05:40 07:47 WBC 4.6 L (5.0-10.0) 10^3/uL RBC 3.04 L (4.6-6.2) 10^6/uL Hgb 9.5 L (14.0-18.0) g/dL Hct 28.8 L (40.0-54.0) % MCV 94.7 (80-100) fL MCH 31.3 (27.0-34.0) pg MCHC 33.0 (33.0-35.0) g/dL Plt Count 99 L (150-450) 10^3/uL Neut % (Auto) 84.6 H (42.2-75.2) % Lymph % (Auto) 4.4 L (20.5-50.1) % Amelia % (Auto) 8.8 H (2-8) % Eos % (Auto) 2.0 (1.0-3.0) % Baso % (Auto) 0.2 (0.0-1.0) % Sodium 130 L (135-145) mmol/L Potassium 4.6 (3.6-5.0) mmol/L Chloride 94 L (101-111) mmol/L Carbon Dioxide 30.0 (21.0-31.0) mmol/L Anion Gap 10.6 BUN 29 H (7-18) mg/dL Creatinine 1.4 H (0.6-1.3) mg/dL Est Cr Clr Drug Dosing 47.07 mL/min Estimated GFR (MDRD) 49 Glucose 62 L (74-105) mg/dL POC Glucose 80 L (83-110) mg/dl Calcium 8.0 L (8.4-10.2) mg/dl Ammonia (11-35) umol/L 03/06/17 Range/Units 08:35 WBC (5.0-10.0) 10^3/uL RBC (4.6-6.2) 10^6/uL Hgb (14.0-18.0) g/dL Hct (40.0-54.0) % MCV (80-100) fL MCH (27.0-34.0) pg MCHC (33.0-35.0) g/dL Plt Count (150-450) 10^3/uL Neut % (Auto) (42.2-75.2) % Lymph % (Auto) (20.5-50.1) % Amelia % (Auto) (2-8) % Eos % (Auto) (1.0-3.0) % Baso % (Auto) (0.0-1.0) % Sodium (135-145) mmol/L Potassium (3.6-5.0) mmol/L Chloride (101-111) mmol/L Carbon Dioxide (21.0-31.0) mmol/L Anion Gap BUN (7-18) mg/dL Creatinine (0.6-1.3) mg/dL Est Cr Clr Drug Dosing mL/min Estimated GFR (MDRD) Glucose (74-105) mg/dL POC Glucose (83-110) mg/dl Calcium (8.4-10.2) mg/dl Ammonia 64 H (11-35) umol/L Med Orders - Current: Current Medications Bumetanide (Bumex) 1 mg PO DAILY [facility] Last Admin: 03/06/17 08:43 Dose: 1 mg Calcium Carbonate/Glycine (Tums) 500 mg PO DAILY [facility] Last Admin: 03/06/17 08:44 Dose: 500 mg Calcium Polycarbophil (Fibercon) 625 mg PO BID [facility] Last Admin: 03/06/17 08:43 Dose: 625 mg Ferrous Sulfate (Ferrous Sulfate) 325 mg PO DAILY [facility] Last Admin: 03/06/17 08:43 Dose: 325 mg Insulin Aspart (Novolog) 0 unit SUBCUT QIDACANDBED [facility] PRN Reason: Protocol Last Admin: 03/06/17 07:56 Dose: Not Given Insulin Detemir (Levemir) 25 unit SUBCUT DAILY [facility] Last Admin: 03/06/17 08:45 Dose: 25 units Lactulose (Cephulac) 15 gm PO TID [facility] Last Admin: 03/06/17 08:44 Dose: 15 gm Nystatin (Mycostatin) 5 ml PO QID [facility] Stop: 04/02/17 23:59 Last Admin: 03/06/17 08:43 Dose: 5 ml Nystatin (Nystop) 1 gm TOP BID [facility] Last Admin: 03/06/17 08:44 Dose: 1 applic Pantoprazole Sodium (Protonix) 40 mg PO ACBRK [facility] Last Admin: 03/06/17 06:21 Dose: 40 mg Potassium Chloride (Klor-Con 10) 20 meq PO DAILY [facility] Last Admin: 03/06/17 08:44 Dose: 20 meq Sodium Chloride (Saline Flush) 10 ml FLUSH ASDIRECTED PRN PRN Reason: Keep Vein Open Last Admin: 03/05/17 00:34 Dose: 10 ml Sodium Chloride (Saline Flush) 10 ml IV BID [facility] Last Admin: 03/06/17 08:44 Dose: 10 ml Spironolactone (Aldactone) 25 mg PO BID [facility] Last Admin: 03/06/17 08:43 Dose: 25 mg Discontinued Medications Bacitracin (Bacitracin Oint 1 Gm) 1 dose TOP ONETIME ONE Stop: 03/03/17 08:41 Last Admin: 03/03/17 08:46 Dose: 1 dose Calcium Carbonate/Glycine (Tums) 500 mg PO ASDIRECTED [facility] Diphtheria/Tetanus/Acell Pertussis (Adacel) 0.5 ml IM .ONCE ONE Stop: 03/03/17 07:40 Last Admin: 03/03/17 08:19 Dose: 0.5 ml Sodium Chloride (Normal Saline) 1,000 mls @ 500 mls/hr IV .BOLUS ONE Stop: 03/03/17 09:31 Last Admin: 03/03/17 08:25 Dose: 500 mls/hr Lactulose (Cephulac) 20 gm PO ONETIME ONE Stop: 03/03/17 08:43 Last Admin: 03/03/17 08:54 Dose: 20 gm Lactulose (Cephulac) 15 gm PO BID [facility] Last Admin: 03/04/17 08:39 Dose: 15 gm *Q Meaningful Use (DIS) - VTE *Q VTE Criteria *Q: VTE Anticoagulation Contraindications: Med/tx not indicated/need - Stroke *Q Stroke Criteria *Q: - AMI *Q AMI Criteria *Q:
[2017-03-06] MEDS: Sodium Chloride 0.9% 10 ML Syringe FLUSH PRN (09:35)
--- NOTE | 2017-03-06 09:42 | PCM.DCSUM1 ---
Discharge Summary - Discharge Data Discharge Date: 03/06/17 Discharge Disposition: DC/Tfer to [facility] 03 Condition: Good - Discharge Diagnosis/Problem(s) (1) Acute hepatic encephalopathy SNOMED Code(s): 06596084 ICD Code: K72.00 - ACUTE AND SUBACUTE HEPATIC FAILURE WITHOUT COMA Status: Acute Current Visit: Yes (2) Scalp abrasion SNOMED Code(s): 446860893 ICD Code: S00.01XA - ABRASION OF SCALP, INITIAL ENCOUNTER Status: Acute Current Visit: Yes Qualifiers: Encounter type: initial encounter Qualified Code(s): S00.01XA - Abrasion of scalp, initial encounter - Patient Summary/Data Consults: Consultations 03/05/17 10:55 OT Evaluation and Treatment [CONS] Routine - Patient Instructions Diet: Regular Diet as Tolerated Fluid Restriction: 1500 mL Activity: As Tolerated Driving: Do Not Drive Showering/Bathing: May Shower Other/Special Instructions: Will be admitted to [facility]. - Discharge Plan Prescriptions/Med Rec: Lactulose [Cephulac] 15 gm PO TID #240 ml Home Medications: Home Meds Calcium Carbonate 500 mg PO ASDIRECTED 12/24/16 [History] Potassium Chloride 20 meq PO DAILY 12/24/16 [History] Bumetanide [Bumex] 1 mg PO DAILY 03/03/17 [History] Calcium Polycarbophil 1 tab PO BID 03/03/17 [History] Nystatin 5 ml PO QID MDD end 03/12/2017 03/03/17 [History] Spironolactone [Aldactone] 25 mg PO BID 03/03/17 [History] Insulin Detemir [Levemir] 22 unit SUBCUT DAILY pen 03/06/17 [Rx] Insulin Glargine,Hum.Rec.Anlog [Basaglar Kwikpen U-100] 22 units SUBCUT DAILY # 0 03/06/17 [Rx] Lactulose [Cephulac] 15 gm PO TID #240 ml 03/06/17 [Rx] Nystatin [Nystop] 1 gm TOP BID bottle 03/06/17 [Rx] - General Info Functional Status: Reports: pain controlled - Review of Systems General: Denies: Fever Pulmonary: Denies: shortness of breath Cardiovascular: Denies: Chest Pain Gastrointestinal: Denies: Abdominal pain - Patient Data Vitals - Most Recent: Last Vital Signs Temp 37.0 C 03/05/17 19:41 Pulse 83 03/06/17 04:00 Resp 20 03/06/17 04:00 BP 116/56 L 03/06/17 04:00 Pulse Ox 100 03/06/17 04:00 Weight - Most Recent: 74.843 kg I&O - Last 24 hours: Intake & Output 03/05/17 03/06/17 03/06/17 22:59 06:59 14:59 Intake Total 600 125 Output Total 600 Balance 0 125 Lab Results - Last 24 hrs: Laboratory Results - last 24 hr 03/05/17 03/05/17 03/05/17 Range/Units 11:03 16:58 21:11 WBC (5.0-10.0) 10^3/uL RBC (4.6-6.2) 10^6/uL Hgb (14.0-18.0) g/dL Hct (40.0-54.0) % MCV (80-100) fL MCH (27.0-34.0) pg MCHC (33.0-35.0) g/dL Plt Count (150-450) 10^3/uL Neut % (Auto) (42.2-75.2) % Lymph % (Auto) (20.5-50.1) % [place] % (Auto) (2-8) % Eos % (Auto) (1.0-3.0) % Baso % (Auto) (0.0-1.0) % Sodium (135-145) mmol/L Potassium (3.6-5.0) mmol/L Chloride (101-111) mmol/L Carbon Dioxide (21.0-31.0) mmol/L Anion Gap BUN (7-18) mg/dL Creatinine (0.6-1.3) mg/dL Est Cr Clr Drug Dosing mL/min Estimated GFR (MDRD) Glucose (74-105) mg/dL POC Glucose 172 H 91 88 (83-110) mg/dl Calcium (8.4-10.2) mg/dl Ammonia (11-35) umol/L 03/06/17 03/06/17 03/06/17 Range/Units 05:40 05:40 07:47 WBC 4.6 L (5.0-10.0) 10^3/uL RBC 3.04 L (4.6-6.2) 10^6/uL Hgb 9.5 L (14.0-18.0) g/dL Hct 28.8 L (40.0-54.0) % MCV 94.7 (80-100) fL MCH 31.3 (27.0-34.0) pg MCHC 33.0 (33.0-35.0) g/dL Plt Count 99 L (150-450) 10^3/uL Neut % (Auto) 84.6 H (42.2-75.2) % Lymph % (Auto) 4.4 L (20.5-50.1) % [place] % (Auto) 8.8 H (2-8) % Eos % (Auto) 2.0 (1.0-3.0) % Baso % (Auto) 0.2 (0.0-1.0) % Sodium 130 L (135-145) mmol/L Potassium 4.6 (3.6-5.0) mmol/L Chloride 94 L (101-111) mmol/L Carbon Dioxide 30.0 (21.0-31.0) mmol/L Anion Gap 10.6 BUN 29 H (7-18) mg/dL Creatinine 1.4 H (0.6-1.3) mg/dL Est Cr Clr Drug Dosing 47.07 mL/min Estimated GFR (MDRD) 49 Glucose 62 L (74-105) mg/dL POC Glucose 80 L (83-110) mg/dl Calcium 8.0 L (8.4-10.2) mg/dl Ammonia (11-35) umol/L 05/05/17 Range/Units 08:35 WBC (5.0-10.0) 10^3/uL RBC (4.6-6.2) 10^6/uL Hgb (14.0-18.0) g/dL Hct (40.0-54.0) % MCV (80-100) fL MCH (27.0-34.0) pg MCHC (33.0-35.0) g/dL Plt Count (150-450) 10^3/uL Neut % (Auto) (42.2-75.2) % Lymph % (Auto) (20.5-50.1) % [place] % (Auto) (2-8) % Eos % (Auto) (1.0-3.0) % Baso % (Auto) (0.0-1.0) % Sodium (135-145) mmol/L Potassium (3.6-5.0) mmol/L Chloride (101-111) mmol/L Carbon Dioxide (21.0-31.0) mmol/L Anion Gap BUN (7-18) mg/dL Creatinine (0.6-1.3) mg/dL Est Cr Clr Drug Dosing mL/min Estimated GFR (MDRD) Glucose (74-105) mg/dL POC Glucose (83-110) mg/dl Calcium (8.4-10.2) mg/dl Ammonia 64 H (11-35) umol/L Med Orders - Current: Current Medications Bumetanide (Bumex) 1 mg PO DAILY [facility] Last Admin: 03/06/17 08:43 Dose: 1 mg Calcium Carbonate/Glycine (Tums) 500 mg PO DAILY [facility] Last Admin: 03/06/17 08:44 Dose: 500 mg Calcium Polycarbophil (Fibercon) 625 mg PO BID [facility] Last Admin: 03/06/17 08:43 Dose: 625 mg Ferrous Sulfate (Ferrous Sulfate) 325 mg PO DAILY [facility] Last Admin: 03/06/17 08:43 Dose: 325 mg Heparin Sodium (Porcine) (Heparin Lock Flush 100 Units/Ml Syringe) 500 units FLUSH ASDIRECTED PRN PRN Reason: deaccess port Last Admin: 03/06/17 09:35 Dose: 500 units Insulin Aspart (Novolog) 0 unit SUBCUT QIDACANDBED [facility] PRN Reason: Protocol Last Admin: 03/06/17 07:56 Dose: Not Given Insulin Detemir (Levemir) 25 unit SUBCUT DAILY [facility] Last Admin: 03/06/17 08:45 Dose: 25 units Lactulose (Cephulac) 15 gm PO TID [facility] Last Admin: 03/06/17 08:44 Dose: 15 gm Nystatin (Mycostatin) 5 ml PO QID [facility] Stop: 04/02/17 23:59 Last Admin: 03/06/17 08:43 Dose: 5 ml Nystatin (Nystop) 1 gm TOP BID [facility] Last Admin: 03/06/17 08:44 Dose: 1 applic Pantoprazole Sodium (Protonix) 40 mg PO ACBRK [facility] Last Admin: 03/06/17 06:21 Dose: 40 mg Potassium Chloride (Klor-Con 10) 20 meq PO DAILY [facility] Last Admin: 03/06/17 08:44 Dose: 20 meq Sodium Chloride (Saline Flush) 10 ml FLUSH ASDIRECTED PRN PRN Reason: Keep Vein Open Last Admin: 03/06/17 09:35 Dose: 10 ml Sodium Chloride (Saline Flush) 10 ml IV BID [facility] Last Admin: 03/06/17 08:44 Dose: 10 ml Spironolactone (Aldactone) 25 mg PO BID [facility] Last Admin: 03/06/17 08:43 Dose: 25 mg Discontinued Medications Bacitracin (Bacitracin Oint 1 Gm) 1 dose TOP ONETIME ONE Stop: 03/03/17 08:41 Last Admin: 03/03/17 08:46 Dose: 1 dose Calcium Carbonate/Glycine (Tums) 500 mg PO ASDIRECTED [facility] Diphtheria/Tetanus/Acell Pertussis (Adacel) 0.5 ml IM .ONCE ONE Stop: 03/03/17 07:40 Last Admin: 03/03/17 08:19 Dose: 0.5 ml Sodium Chloride (Normal Saline) 1,000 mls @ 500 mls/hr IV .BOLUS ONE Stop: 03/03/17 09:31 Last Admin: 03/03/17 08:25 Dose: 500 mls/hr Lactulose (Cephulac) 20 gm PO ONETIME ONE Stop: 03/03/17 08:43 Last Admin: 03/03/17 08:54 Dose: 20 gm Lactulose (Cephulac) 15 gm PO BID [facility] Last Admin: 03/04/17 08:39 Dose: 15 gm - Exam Quality Assessment: Denies: supplemental oxygen General: Reports: alert, oriented Neck: Reports: supple Lungs: Reports: Clear to auscultation, Normal respiratory effort Cardiovascular: Reports: Regular Rate, Regular Rhythm Abdomen: Reports: bowel sounds present Skin: Reports: warm, other (r. facial skin tear) Psy/Mental Status: Reports: alert, normal mood *Q Meaningful Use (DIS) - VTE *Q VTE Criteria *Q: VTE Anticoagulation Contraindications: Med/tx not indicated/need - Stroke *Q Stroke Criteria *Q: - AMI *Q AMI Criteria *Q:
[2017-03-06 10:51] VITALS: BP 127/57
--- NOTE | 2017-03-24 13:06 | EKG ---
03/03/2017- REAGAN GONSALVES - EKG done on a 77-year-old male showing sinus rhythm, heart rate of 91 beats per minute. No acute ST-T wave changes. Prolonged QT interval at 488. [facility] /[id number] MTDD
== END 2017-03-06 10:00 | DRG 442 ==
LOC: DL.ED 07:13 → INTOOBSV 09:42 → UNDOADMOB 09:42 → DL.MS 09:42 → OBSVTOIN 03-04 09:57 → INTOOBSV 03-04 09:57
PROVIDERS: ADMIT Internal Medicine; ATTEND Internal Medicine
DX: K72.00 Acute and subacute hepatic failure without coma (principal); D61.818 Other pancytopenia; S00.81XA Abrasion of other part of head, initial encounter; S00.03XA Contusion of scalp, initial encounter; S00.83XA Contusion of other part of head, initial encounter; S40.011A Contusion of right shoulder, initial encounter; S51.012A Laceration without foreign body of left elbow, initial encounter; C17.0 Malignant neoplasm of duodenum; W19.XXXA Unspecified fall, initial encounter; S00.01XA Abrasion of scalp, initial encounter; W18.00XA Striking against unspecified object with subsequent fall, initial encounter; Z79.4 Long term (current) use of insulin; E11.9 Type 2 diabetes mellitus without complications; I10 Essential (primary) hypertension; K74.60 Unspecified cirrhosis of liver; R41.82 Altered mental status, unspecified; Z96.0 Presence of urogenital implants; Z79.899 Other long term (current) drug therapy; Z23 Encounter for immunization
CPT/HCPCS: 36415 ×2; 51702; 70450; 71010; 80048; 80053; 80305; 81001; 82140; 82150; 82550; 82962 ×4; 83690; 83880; 84484; 85025 ×2; 85610; 85730; 87040 ×2; 90471; 90715; 93005 ×2; 93010; 96360; 96361; 99285 ×2; A9270 ×17; G0378; G0480; J1815 ×2; J7030; J7050; 85027; 97116-GP; 97161-GP; 97165-GO; J1642

== ENCOUNTER 2017-05-17 09:39 | Emergency (ER) | payer MEDICARE, BC ==
[2017-05-17] MEDS ORDERED: Ondansetron 4 MG/2 ML SDV IV ONE (10:17)
[2017-05-17] MEDS ORDERED: Sodium Chloride 0.9% 1,000 ML IV ONE (10:17)
--- NOTE | 2017-05-17 10:22 | EDM.PDOC ---
ED HPI GENERAL MEDICAL PROBLEM - General Chief Complaint: Abdominal Pain Stated Complaint: [facility] Time Seen by Provider: 05/17/17 10:20 Source of Information: Reports: Patient History Limitations: Reports: No Limitations - History of Present Illness INITIAL COMMENTS - FREE TEXT/NARRATIVE: 77 yo male presents with abdominal pain. States that he has pain to lower abdomen and nausea. Denies pain elsewhere. No SOB or chest pain. Onset Date: 05/16/17 Duration: Constant Location: Reports: Abdomen Quality: Reports: Ache Severity: Moderate Improves with: Reports: None Worsens with: Reports: None Context: Reports: Activity Associated Symptoms: Reports: Nausea/Vomiting Upper Abdomen Pain Score (Numeric/FACES): 8 - Related Data Allergies Allergy/AdvReac Type Severity Reaction Status Date / Time No Known Allergies Allergy Verified 05/15/17 09:57 Home Meds: Home Meds Potassium Chloride 20 meq PO DAILY 12/24/16 [History] Bumetanide [Bumex] 1 mg PO DAILY 03/03/17 [History] Spironolactone [Aldactone] 25 mg PO BID 03/03/17 [History] Nystatin [Nystop] 1 gm TOP BID bottle 03/06/17 [Rx] Folic Acid 1 tab PO DAILY 05/15/17 [History] Insulin Glargine,Hum.Rec.Anlog [Basaglar Kwikpen U-100] 18 units SUBCUT BEDTIME 05/15/17 [History] Iron Polysaccharide Complex [Ferrex 150] 1 cap PO DAILY 05/15/17 [History] Lactulose [Cephulac] 15 ml PO TID 05/15/17 [History] Omeprazole [Omeprazole] 1 cap PO DAILY 05/15/17 [History] Insulin Aspart [Novolog Flexpen] 3 units SQ BEDTIME 05/17/17 [History] Past Medical History HEENT History: Reports: Cataract, Impaired Vision, Other (See Below) Other HEENT History: diabetic eye exam no retinopathy Cardiovascular History: Reports: Hypertension, Other (See Below) Other Cardiovascular History: CHF Gastrointestinal History: Reports: Chronic Constipation, Cirrhosis, GERD, GI Bleed, Jaundice, Other (See Below) Other Gastrointestinal History: MALIGNANT NEOPLASM OF DUODENUM, adenocarcinoma Genitourinary History: Reports: Renal Disease, Other (See Below) Other Genitourinary History: left renal mass, kidney disease Endocrine/Metabolic History: Reports: Diabetes, Type II Hematologic History: Reports: Anemia, Iron Deficiency, Other (See Below) Other Hematologic History: CALCIUM DEFICIENCY. THROMBOCYTOPENIA Oncologic (Cancer) History: Reports: Other (See Below) Other Oncologic History: Malignant neoplasm of the duodenum. Just finished round of chemo and radiation 02/27/2017 Dermatologic History: Reports: Other (See Below) Other Dermatologic History: CANDIDIASIS - Past Surgical History Cardiovascular Surgical History: Reports: Coronary Artery Stent GI Surgical History: Reports: Colonoscopy, EGD, Hernia, Inguinal Male Surgical History: Reports: Cystectomy, Kidney Stone Extraction, Lithotripsy ([facility]) Social & Family History - Family History Family Medical History: Noncontributory - Tobacco Use Smoking Status *Q: Never Smoker - Caffeine Use Caffeine Use: Reports: None - Recreational Drug Use Recreational Drug Use: No - Living Situation & Occupation Living situation: Reports: Alone, Assisted Living Occupation: Retired ED ROS GENERAL - Review of Systems Review Of Systems: ROS reveals no pertinent complaints other than HPI. ED EXAM, GI/ABD - Physical Exam Exam: See Below Exam Limited By: No Limitations General Appearance: Alert, WD/WN, No Apparent Distress Eyes: Bilateral: Normal Appearance, EOMI Nose: Normal Inspection, Normal Mucosa, No Blood Throat/Mouth: Normal Inspection, Normal Lips, Normal Teeth, Normal Gums, Normal Oropharynx, Normal Voice, No Airway Compromise Head: Atraumatic, Normocephalic Neck: Normal Inspection, Supple, Non-Tender, Full Range of Motion Respiratory/Chest: No Respiratory Distress, Lungs Clear, Normal Breath Sounds, No Accessory Muscle Use, Chest Non-Tender Cardiovascular: Normal Peripheral Pulses, Regular Rate, Rhythm, No Edema, No Gallop, No JVD, No Rub, Systolic Murmur GI/Abdominal: Normal Bowel Sounds, Soft, Non-Tender, No Organomegaly, No Distention, No Abnormal Bruit, No Mass Extremities: Normal Inspection, Normal Range of Motion, Non-Tender, Normal Capillary Refill, No Pedal Edema Neurological: Alert, Oriented, CN II-XII Intact, Normal Cognition, Normal Gait, No Motor/Sensory Deficits Skin Exam: Warm, Dry, Intact, Normal Color, No Rash Course - Vital Signs Last Recorded V/S: Last Vital Signs Temp 97.1 F 05/17/17 09:51 Pulse 77 05/17/17 09:51 Resp 16 05/17/17 09:51 BP 126/54 L 05/17/17 09:51 Pulse Ox 100 05/17/17 09:51 - Orders/Labs/Meds Orders: Active Orders 24 hr Category Date Time Status EKG Documentation Completion [RC] STAT Care 05/17/17 10:17 Active Enema [RC] ASDIRECTED Care 05/17/17 13:26 Active Sodium Chloride 0.9% [Saline Flush] Med 05/17/17 10:17 Active 10 ml FLUSH ASDIRECTED PRN Saline Lock Insert [OM.PC] Stat Oth 05/17/17 10:17 Ordered Medication Orders Sodium Chloride (Saline Flush) 10 ml FLUSH ASDIRECTED PRN PRN Reason: Keep Vein Open Last Admin: 05/17/17 10:44 Dose: 10 ml Labs: Laboratory Tests 05/17/17 05/17/17 05/17/17 Range/Units 10:29 10:29 10:29 WBC 3.0 L (5.0-10.0) 10^3/uL RBC 2.61 L (4.6-6.2) 10^6/uL Hgb 8.7 L (14.0-18.0) g/dL Hct 26.1 L (40.0-54.0) % MCV 100.0 (80-100) fL MCH 33.3 (27.0-34.0) pg MCHC 33.3 (33.0-35.0) g/dL Plt Count 115 L (150-450) 10^3/uL Neut % (Auto) 66.5 (42.2-75.2) % Lymph % (Auto) 20.5 (20.5-50.1) % [place] % (Auto) 10.4 H (2-8) % Eos % (Auto) 2.3 (1.0-3.0) % Baso % (Auto) 0.3 (0.0-1.0) % Sodium 135 (135-145) mmol/L Potassium 4.0 (3.6-5.0) mmol/L Chloride 102 (101-111) mmol/L Carbon Dioxide 24.0 (21.0-31.0) mmol/L Anion Gap 13.0 BUN 26 H (7-18) mg/dL Creatinine 1.5 H (0.6-1.3) mg/dL Est Cr Clr Drug Dosing 41.17 mL/min Estimated GFR (MDRD) 46 BUN/Creatinine Ratio 17.33 Glucose 113 H (74-105) mg/dL Calcium 8.9 (8.4-10.2) mg/dl Total Bilirubin 1.0 (0.2-1.0) mg/dL AST 45 H (10-42) IU/L ALT 23 (10-60) IU/L Alkaline Phosphatase 258 H (42-121) IU/L Creatine Kinase 24 L (26-174) IU/L Creatine Kinase Index 6.3 H (0-2.4) % CK-MB (CK-2) 1.50 (0.4-4.7) ng/mL Troponin I 0.02 (0.00-0.02) ng/ml Total Protein 5.4 L (6.7-8.2) g/dl Albumin 2.1 L (3.2-5.5) g/dl Globulin 3.3 Albumin/Globulin Ratio 0.64 Amylase 21 L (28-100) U/L Lipase 43 (22-51) U/L Urine Color (YELLOW) Urine Appearance (CLEAR) Urine pH (5.0-9.0) Ur Specific [place] (1.005-1.030) Urine Protein (NEGATIVE) Urine Glucose (UA) (NEGATIVE) Urine Ketones (NEGATIVE) Urine Occult Blood (NEGATIVE) Urine Nitrite (NEGATIVE) Urine Bilirubin (NEGATIVE) Urine Urobilinogen (0.2-1.0) mg/dL Ur Leukocyte Esterase (NEGATIVE) Urine RBC /HPF Urine WBC (0-5/HPF) /HPF Ur Epithelial Cells /HPF Urine Bacteria (0-FEW/HPF) /HPF Urine Mucus /LPF // Range/Units 11:18 WBC (5.0-10.0) 10^3/uL RBC (4.6-6.2) 10^6/uL Hgb (14.0-18.0) g/dL Hct (40.0-54.0) % MCV (80-100) fL MCH (27.0-34.0) pg MCHC (33.0-35.0) g/dL Plt Count (150-450) 10^3/uL Neut % (Auto) (42.2-75.2) % Lymph % (Auto) (20.5-50.1) % [place] % (Auto) (2-8) % Eos % (Auto) (1.0-3.0) % Baso % (Auto) (0.0-1.0) % Sodium (135-145) mmol/L Potassium (3.6-5.0) mmol/L Chloride (101-111) mmol/L Carbon Dioxide (21.0-31.0) mmol/L Anion Gap BUN (7-18) mg/dL Creatinine (0.6-1.3) mg/dL Est Cr Clr Drug Dosing mL/min Estimated GFR (MDRD) BUN/Creatinine Ratio Glucose (74-105) mg/dL Calcium (8.4-10.2) mg/dl Total Bilirubin (0.2-1.0) mg/dL AST (10-42) IU/L ALT (10-60) IU/L Alkaline Phosphatase (42-121) IU/L Creatine Kinase (26-174) IU/L Creatine Kinase Index (0-2.4) % CK-MB (CK-2) (0.4-4.7) ng/mL Troponin I (0.00-0.02) ng/ml Total Protein (6.7-8.2) g/dl Albumin (3.2-5.5) g/dl Globulin Albumin/Globulin Ratio Amylase (28-100) U/L Lipase (22-51) U/L Urine Color Yellow (YELLOW) Urine Appearance Clear (CLEAR) Urine pH 7.5 (5.0-9.0) Ur Specific [place] 1.015 (1.005-1.030) Urine Protein Trace H (NEGATIVE) Urine Glucose (UA) Negative (NEGATIVE) Urine Ketones Negative (NEGATIVE) Urine Occult Blood Negative (NEGATIVE) Urine Nitrite Negative (NEGATIVE) Urine Bilirubin Negative (NEGATIVE) Urine Urobilinogen 0.2 (0.2-1.0) mg/dL Ur Leukocyte Esterase Negative (NEGATIVE) Urine RBC 0-5 /HPF Urine WBC 0-5 (0-5/HPF) /HPF Ur Epithelial Cells Few /HPF Urine Bacteria Few (0-FEW/HPF) /HPF Urine Mucus Few H /LPF Meds: Medications Generic Name Dose Route Start Last Admin Trade Name Freq PRN Reason Stop Dose Admin Sodium Chloride 10 ml 05/17/17 10:17 05/17/17 10:44 Saline Flush FLUSH 10 ml ASDIRECTED PRN Administration Keep Vein Open Discontinued Medications Generic Name Dose Route Start Last Admin Trade Name Steve PRN Reason Stop Dose Admin Docusate Sodium/Benzocaine 1 each 05/17/17 11:48 05/17/17 12:12 Enemeez Plus Mini Enema RECTAL 05/17/17 11:49 1 each ONETIME ONE Administration Heparin Sodium (Porcine) 500 units 05/17/17 11:57 Heparin Lock Flush 100 Units/Ml FLUSH 05/17/17 11:58 ASDIRECTED ONE Sodium Chloride 1,000 mls @ 999 mls/hr 05/17/17 10:17 05/17/17 10:39 Normal Saline IV 05/17/17 11:17 999 mls/hr .BOLUS ONE Administration Ondansetron HCl 4 mg 05/17/17 10:17 05/17/17 10:40 Zofran IV 05/17/17 10:18 4 mg ONETIME ONE Administration - Re-Assessments/Exams Free Text/Narrative Re-Assessment/Exam: 05/17/17 14:41 Small bowel movement after enemas. 05/17/17 15:09 No more bowel movement after last enema however patient denies pain and feels better. Will dc home Departure - Departure Time of Disposition: 15:09 Disposition: Home, Self-Care 01 Condition: Good Clinical Impression: Constipation Qualifiers: Constipation type: unspecified constipation type Qualified Code(s): K59.00 - Constipation, unspecified - Discharge Information Instructions: Constipation, Adult, [id number] Forms: ED Department Discharge Additional Instructions: Take medication as prescribed. Return for any worsening symptoms - My Orders Last 24 Hours: My Active Orders 05/17/17 10:17 EKG Documentation Completion [RC] STAT Sodium Chloride 0.9% [Saline Flush] 10 ml FLUSH ASDIRECTED PRN Saline Lock Insert [OM.PC] Stat 05/17/17 13:26 Enema [RC] ASDIRECTED - Assessment/Plan Last 24 Hours: My Active Orders 05/17/17 10:17 EKG Documentation Completion [RC] STAT Sodium Chloride 0.9% [Saline Flush] 10 ml FLUSH ASDIRECTED PRN Saline Lock Insert [OM.PC] Stat 05/17/17 13:26 Enema [RC] ASDIRECTED
[2017-05-17] MEDS: Sodium Chloride 0.9% 10 ML Syringe FLUSH PRN ×2 (10:44→15:32)
[2017-05-17] MEDS ORDERED: Benzocaine/Docusate Sodium 20-283 MG/5 ML Enema RECTAL ONE (11:48)
[2017-05-17 15:13] VITALS: BP 121/52
--- NOTE | 2017-05-19 10:04 | EKG ---
05/17/2017 - REAGAN GONSALVES I reviewed the EKG and agree with the machine's reading. [facility] /[id number]
== END 2017-05-17 15:41 | disposition home or self-care (01) ==
LOC: DL.ED 09:39
DX: K59.00 Constipation, unspecified (principal); H54.7 Unspecified visual loss; K21.9 Gastro-esophageal reflux disease without esophagitis; E11.9 Type 2 diabetes mellitus without complications; I11.0 Hypertensive heart disease with heart failure; I50.9 Heart failure, unspecified; D64.9 Anemia, unspecified; Z95.5 Presence of coronary angioplasty implant and graft; Z79.899 Other long term (current) drug therapy; Z79.4 Long term (current) use of insulin
CPT/HCPCS: 36415; 74022; 80053; 81001; 82150; 82550; 82553; 83690; 84484; 85025; 93005; 93010; 96361; 96374; 99284; A9270; J1642; J2405; J7030; J7050

== ENCOUNTER 2017-05-20 07:20 | Day surgery (SDC) | payer MEDICARE, BC ==
[2017-05-20] MEDS ORDERED: Timolol Maleate 0.5% Ophth Soln 5 ML Bottle EYELF ONE (07:30)
[2017-05-20] MEDS ORDERED: Dilation Soln 1 EA EACH EYELF ONE (07:30)
[2017-05-20] MEDS ORDERED: Moxifloxacin 0.5% Ophth Soln 3 ML Bottle EYELF ONE (07:30)
[2017-05-20] MEDS ORDERED: Sodium Chloride 0.9% 10 ML Syringe FLUSH PRN (07:30)
[2017-05-20] MEDS ORDERED: Phenylephrine 10% Ophth Soln 5 ML Bot EYELF ONE (07:30)
[2017-05-20] MEDS ORDERED: Povidone-Iodine 5% Sterile Ophth Soln 30 ML Bottle EYELF ONE ×2 (07:30→08:47)
[2017-05-20] MEDS ORDERED: Proparacaine 0.5% Ophth Soln 15 ML Bottle EYELF ONE (07:30)
[2017-05-20] MEDS ORDERED: Midazolam 1 MG/ML 2 ML SDV ONE (08:21)
[2017-05-20] MEDS ORDERED: Dexamethasone 4 MG/ML SDV ONE (08:21)
[2017-05-20] MEDS ORDERED: Lidocaine 1% 30 ML SDV ONE (08:47)
[2017-05-20] MEDS ORDERED: Tetracaine HCl/PF 0.5% 4 ML Bottle EYELF ONE (08:48)
[2017-05-20] MEDS ORDERED: Apraclonidine 0.5% Ophth Soln 5 ML Bot EYELF ONE (08:48)
[2017-05-20] MEDS ORDERED: Diclofenac Sodium 0.1% Ophth Soln 5 ML Bottle EYELF ONE (08:48)
[2017-05-20] MEDS ORDERED: Dexamethasone/Neomycin/Polymyxin B Ophth Oint 3.5 GM Tube EYELF ONE (08:48)
[2017-05-20] MEDS ORDERED: Balanced Salt Solution Ophth Irrig 500 ML Bottle IOCULAR ONE (08:49)
[2017-05-20] MEDS ORDERED: Chondroitin Sulfate/Hyaluronate Sodium Ophth Inj 0.75 ML Syringe EYELF ONE (08:49)
[2017-05-20] MEDS ORDERED: Vancomycin 500 MG SDV EYELF ONE (08:49)
--- NOTE | 2017-05-20 10:05 | OR ---
DATE: PREOPERATIVE DIAGNOSIS: Cataract, left eye. POSTOPERATIVE DIAGNOSIS: Cataract, left eye. PROCEDURE: Extracapsular cataract extraction with intraocular lens implant, left eye. ANESTHESIA: Topical/local MAC. COMPLICATIONS: None. INDICATION: Mr. Patel was seen in the clinic. He has complained of a slow progressive decrease in vision. His clinical examination reveals visually significant cataract. I explained options to Mr. Patel. I offered cataract surgery and I explained risks including but not limited to, infection, retinal detachment, loss of vision, need for additional surgery, and risks associated with anesthesia. We discussed implant options. He requested a monofocal implant. OPERATIVE DESCRIPTION: After informed consent was obtained and the risks, benefits, and alternatives were explained, the patient was brought to the operative suite and topical anesthesia was administered. The patient was then prepped and draped in the sterile fashion and attention was placed on the left eye. A sterile lid speculum was placed into the left eye to allow operative exposure. A full-thickness paracentesis was made in the temporal portion of the operative eye. Preservative-free lidocaine 0.1 mL was injected into the anterior chamber followed by viscoelastic. A full-thickness corneal incision was then made into the anterior chamber. A bent needle cystotome was used to create a small ada in the anterior capsule. The capsulorrhexis forceps was then used to create a 360-degree curvilinear capsulorrhexis. The nucleus was then removed using a phacoemulsification handpiece and the remaining cortical material was then removed with irrigation and aspiration handpiece. Following removal of the cortical material, the capsular bag was then inspected and noted to be free of any holes or tears. Viscoelastic was then injected into the capsular bag and the intraocular lens was inserted into the capsular bag. No complications occurred. The viscoelastic material was then removed from both the anterior and posterior chambers and from behind the IOL. The lens and capsular bag were then reinspected. The IOL was well centered and the capsular bag intact. The wound and paracentesis sites were inspected and hydrated with balanced saline solution. Both were found to be self-sealing. The intraocular pressure was assessed digitally and found to be within normal range. A good red reflex was noted at the completion of the procedure. No complications occurred during the operation. At the completion of the procedure, Maxitrol, Voltaren, and Iopidine drops were placed into the operative eye. A sterile eye shield was placed over the operative eye and the patient was transported to the postoperative recovery area having tolerated the procedure well. Postoperative instructions were given along with a postoperative appointment. The patient was advised to call with any questions or concerns. [facility] /[id number]
[2017-05-20 11:28] VITALS: BP 108/48
[2017-05-20] MEDS ORDERED: Midazolam 1 MG/ML 2 ML SDV IV ONE (14:10)
[2017-05-20] MEDS ORDERED: Dexamethasone 4 MG/ML SDV IV ONE (14:10)
[2017-05-20] MEDS ORDERED: Sodium Chloride 0.9% 10 ML Syringe IV ONE (14:10)
== END 2017-05-20 10:04 | disposition home or self-care (01) ==
LOC: DL.SDS 07:20
PROVIDERS: ATTEND Ophthalmology
DX: H26.9 Unspecified cataract (principal); E11.22 Type 2 diabetes mellitus with diabetic chronic kidney disease; I12.9 Hypertensive chronic kidney disease with stage 1 through stage 4 chronic kidney disease, or unspecified chronic kidney disease; N18.9 Chronic kidney disease, unspecified; Z98.890 Other specified postprocedural states; Z79.4 Long term (current) use of insulin; Z79.899 Other long term (current) drug therapy
CPT/HCPCS: 00142; 66984; A9270; J1100; J1642; J2250; J3370; J7050; V2632

== ENCOUNTER 2017-05-22 23:42 | Emergency (ER) | payer MEDICARE, BC ==
--- NOTE | 2017-05-22 23:54 | EDM.PDOC ---
ED HPI GENERAL MEDICAL PROBLEM - General Chief Complaint: Abdominal Pain Stated Complaint: AMBULANCE Time Seen by Provider: 05/22/17 23:52 Source of Information: Reports: Patient, EMS History Limitations: Reports: No Limitations - History of Present Illness INITIAL COMMENTS - FREE TEXT/NARRATIVE: 1 week h/o abd pain. not better so wants to be check. Bilateral Upper Abdomen Pain Score (Numeric/FACES): 5 - Related Data Allergies Allergy/AdvReac Type Severity Reaction Status Date / Time No Known Allergies Allergy Verified 05/22/17 23:47 Home Meds: Home Meds Potassium Chloride 20 meq PO DAILY 12/24/16 [History] Bumetanide [Bumex] 1 mg PO DAILY 03/03/17 [History] Spironolactone [Aldactone] 25 mg PO BID 03/03/17 [History] Folic Acid 1 mg PO DAILY 05/15/17 [History] Iron Polysaccharide Complex [Ferrex 150] 150 mg PO DAILY 05/15/17 [History] Lactulose [Cephulac] 15 gm PO TID 05/15/17 [History] Omeprazole [Omeprazole] 20 mg PO ACBREAKFAST 05/15/17 [History] Insulin Aspart [Novolog Flexpen] 3 units SQ WITHDINNER 05/17/17 [History] Calcium Carbonate [Tums] 500 mg PO BID PRN 05/19/17 [History] Docusate Sodium [Colace] 100 mg PO BID 05/19/17 [History] Insulin Glarg,Human.Rec.Analog [Lantus] 18 units SQ BEDTIME 05/19/17 [History] Moxifloxacin [Vigamox 0.5% Ophth Soln] 1 drop EYELF QID 05/19/17 [History] Nystatin [Nystop] 1 gm TOP BID PRN 05/19/17 [History] Calcium Polycarbophil [Fibercon] 1 tab PO BID 05/20/17 [History] Ketorolac [Acular 0.5% Ophth Soln] 1 drop EYELF BID 05/22/17 [History] Past Medical History HEENT History: Reports: Cataract, Impaired Vision, Other (See Below) Other HEENT History: diabetic eye exam no retinopathy Cardiovascular History: Reports: Heart Murmur, Hypertension, Other (See Below) Other Cardiovascular History: CHF Respiratory History: Reports: None Gastrointestinal History: Reports: Chronic Constipation, Cirrhosis, GERD, GI Bleed, Jaundice, Other (See Below) Other Gastrointestinal History: MALIGNANT NEOPLASM OF DUODENUM, adenocarcinoma Genitourinary History: Reports: Renal Disease, Other (See Below) Other Genitourinary History: left renal mass, kidney disease Musculoskeletal History: Reports: None Neurological History: Reports: None Psychiatric History: Reports: None Endocrine/Metabolic History: Reports: Diabetes, Type II Hematologic History: Reports: Anemia, Iron Deficiency, Other (See Below) Other Hematologic History: CALCIUM DEFICIENCY. THROMBOCYTOPENIA Immunologic History: Reports: None Oncologic (Cancer) History: Reports: Other (See Below) Other Oncologic History: Malignant neoplasm of the duodenum. Just finished round of chemo and radiation 02/27/2017 Dermatologic History: Reports: Other (See Below) Other Dermatologic History: CANDIDIASIS - Infectious Disease History Infectious Disease History: Reports: None - Past Surgical History Cardiovascular Surgical History: Reports: Coronary Artery Stent GI Surgical History: Reports: Cholecystectomy, Colonoscopy, EGD, Hernia, Inguinal Male Surgical History: Reports: Cystectomy, Kidney Stone Extraction, Lithotripsy ([facility]) Social & Family History - Family History Family Medical History: Noncontributory - Tobacco Use Smoking Status *Q: Never Smoker - Caffeine Use Caffeine Use: Reports: None - Recreational Drug Use Recreational Drug Use: No - Living Situation & Occupation Living situation: Reports: Alone, Assisted Living Occupation: Retired ED ROS GENERAL - Review of Systems Review Of Systems: ROS reveals no pertinent complaints other than HPI. ED EXAM, GI/ABD - Physical Exam Exam: See Below Exam Limited By: No Limitations General Appearance: Alert, WD/WN, Mild Distress, Other (distraught) Ears: Hearing Grossly Normal Throat/Mouth: Normal Voice, No Airway Compromise Head: Atraumatic Neck: Non-Tender, Full Range of Motion Respiratory/Chest: No Respiratory Distress Cardiovascular: Regular Rate, Rhythm GI/Abdominal Exam: Soft, Non-Tender, Other (BS hyper). No: Distended, Guarding , Rebound, Tender, Mass Neurological: Alert, Oriented, Normal Cognition, Normal Gait, No Motor/Sensory Deficits Psychiatric: Flat Affect Skin Exam: Warm, Dry Lymphatic: No Adenopathy Course - Vital Signs Last Recorded V/S: Last Vital Signs Temp 36.4 C 05/23/17 02:53 Pulse 78 05/23/17 02:53 Resp 18 05/23/17 02:53 BP 122/51 L 05/23/17 02:53 Pulse Ox 99 05/23/17 02:53 - Orders/Labs/Meds Orders: Active Orders 24 hr Category Date Time Status Head wo Cont [CT] Urgent Exams 05/23/17 01:37 Taken Labs: Laboratory Tests 05/22/17 05/22/17 05/23/17 Range/Units 00:18 00:18 00:52 WBC 4.1 L (5.0-10.0) 10^3/uL RBC 2.62 L (4.6-6.2) 10^6/uL Hgb 8.7 L (14.0-18.0) g/dL Hct 26.2 L (40.0-54.0) % MCV 100.0 (80-100) fL MCH 33.2 (27.0-34.0) pg MCHC 33.2 (33.0-35.0) g/dL Plt Count 144 L (150-450) 10^3/uL Neut % (Auto) 57.5 (42.2-75.2) % Lymph % (Auto) 24.4 (20.5-50.1) % [place] % (Auto) 15.6 H (2-8) % Eos % (Auto) 2.0 (1.0-3.0) % Baso % (Auto) 0.5 (0.0-1.0) % Sodium 134 L (135-145) mmol/L Potassium 3.7 (3.6-5.0) mmol/L Chloride 100 L (101-111) mmol/L Carbon Dioxide 23.0 (21.0-31.0) mmol/L Anion Gap 14.7 BUN 32 H (7-18) mg/dL Creatinine 1.8 H (0.6-1.3) mg/dL Est Cr Clr Drug Dosing 32.00 mL/min Estimated GFR (MDRD) 37 BUN/Creatinine Ratio 17.77 Glucose 124 H (74-105) mg/dL Calcium 8.8 (8.4-10.2) mg/dl Total Bilirubin 0.8 (0.2-1.0) mg/dL AST 59 H (10-42) IU/L ALT 33 (10-60) IU/L Alkaline Phosphatase 435 H (42-121) IU/L Total Protein 5.6 L (6.7-8.2) g/dl Albumin 2.3 L (3.2-5.5) g/dl Globulin 3.3 Albumin/Globulin Ratio 0.70 Amylase 34 (28-100) U/L Lipase 51 (22-51) U/L Urine Color Yellow (YELLOW) Urine Appearance Slightly cloudy (CLEAR) Urine pH 5.5 (5.0-9.0) Ur Specific [place] 1.015 (1.005-1.030) Urine Protein Negative (NEGATIVE) Urine Glucose (UA) Negative (NEGATIVE) Urine Ketones Negative (NEGATIVE) Urine Occult Blood Negative (NEGATIVE) Urine Nitrite Negative (NEGATIVE) Urine Bilirubin Negative (NEGATIVE) Urine Urobilinogen 0.2 (0.2-1.0) mg/dL Ur Leukocyte Esterase Negative (NEGATIVE) Urine RBC 0-5 /HPF Urine WBC 0-5 (0-5/HPF) /HPF Ur Epithelial Cells Rare /HPF Amorphous Sediment Few (0/HPF) /HPF Urine Bacteria Rare (0-FEW/HPF) /HPF Hyaline Casts Rare H /LPF Urine Mucus Few H /LPF - Re-Assessments/Exams Free Text/Narrative Re-Assessment/Exam: 05/23/17 01:36 N.H states Pt been confused and not acting himself all day. 05/23/17 02:58 results discussed with pt. Departure - Departure Time of Disposition: 02:58 Disposition: DC/Tfer to [facility] Condition: Good Clinical Impression: Gastroenteritis - Discharge Information Instructions: Viral Gastroenteritis, Adult, [id number] Forms: ED Department Discharge Additional Instructions: 1) liquid diet next 4 to 5 days 2) follow up with family doctor or recheck if there is any change or concern - My Orders Last 24 Hours: My Active Orders 05/23/17 01:37 Head wo Cont [CT] Urgent - Assessment/Plan Last 24 Hours: My Active Orders 05/23/17 01:37 Head wo Cont [CT] Urgent
[2017-05-23 02:53] VITALS: BP 122/51
== END 2017-05-23 03:06 ==
LOC: DL.ED 23:42
DX: K52.9 Noninfective gastroenteritis and colitis, unspecified (principal); H54.7 Unspecified visual loss; I11.0 Hypertensive heart disease with heart failure; I50.9 Heart failure, unspecified; K21.9 Gastro-esophageal reflux disease without esophagitis; E11.9 Type 2 diabetes mellitus without complications; D64.9 Anemia, unspecified; Z90.49 Acquired absence of other specified parts of digestive tract; Z79.899 Other long term (current) drug therapy; Z79.4 Long term (current) use of insulin; Z98.890 Other specified postprocedural states; Z95.5 Presence of coronary angioplasty implant and graft
CPT/HCPCS: 36415; 70450; 74176; 80053; 81001; 82150; 83690; 85025; 99284; 99285

== ENCOUNTER 2017-05-27 07:44 | Day surgery (SDC) | payer MEDICARE, BC ==
[2017-05-27] MEDS ORDERED: Povidone-Iodine 5% Sterile Ophth Soln 30 ML Bottle EYERT ONE ×2 (07:45→09:26)
[2017-05-27] MEDS ORDERED: Phenylephrine 10% Ophth Soln 5 ML Bot EYERT ONE (07:45)
[2017-05-27] MEDS ORDERED: Proparacaine 0.5% Ophth Soln 15 ML Bottle EYERT ONE (07:45)
[2017-05-27] MEDS ORDERED: Dilation Soln 1 EA EACH EYERT ONE (07:45)
[2017-05-27] MEDS ORDERED: Moxifloxacin 0.5% Ophth Soln 3 ML Bottle EYERT ONE (07:45)
[2017-05-27] MEDS ORDERED: Timolol Maleate 0.5% Ophth Soln 5 ML Bottle EYERT ONE (07:45)
[2017-05-27] MEDS: Sodium Chloride 0.9% 10 ML Syringe FLUSH PRN ×2 (08:05→10:29)
[2017-05-27] MEDS ORDERED: Dexamethasone 4 MG/ML SDV ONE (08:49)
[2017-05-27] MEDS ORDERED: Midazolam 1 MG/ML 2 ML SDV ONE (08:49)
[2017-05-27] MEDS ORDERED: Apraclonidine 0.5% Ophth Soln 5 ML Bot EYERT ONE (09:26)
[2017-05-27] MEDS ORDERED: Lidocaine 1% 30 ML SDV ONE (09:26)
[2017-05-27] MEDS ORDERED: Dexamethasone/Neomycin/Polymyxin B Ophth Oint 3.5 GM Tube EYERT ONE (09:27)
[2017-05-27] MEDS ORDERED: Balanced Salt Solution Ophth Irrig 500 ML Bottle IOCULAR ONE (09:27)
[2017-05-27] MEDS ORDERED: Diclofenac Sodium 0.1% Ophth Soln 5 ML Bottle EYERT ONE (09:27)
[2017-05-27] MEDS ORDERED: Tetracaine HCl/PF 0.5% 4 ML Bottle EYERT ONE (09:27)
[2017-05-27] MEDS ORDERED: Chondroitin Sulfate/Hyaluronate Sodium Ophth Inj 0.75 ML Syringe EYERT ONE (09:27)
[2017-05-27] MEDS ORDERED: Vancomycin 500 MG SDV EYERT ONE (09:28)
--- NOTE | 2017-05-27 10:09 | OR ---
DATE: 05/27/2017 PREOPERATIVE DIAGNOSIS: Cataract, right eye. POSTOPERATIVE DIAGNOSIS: Cataract, right eye. PROCEDURE: Extracapsular cataract extraction with intraocular lens implant, right eye. ANESTHESIA: Topical/local MAC. COMPLICATIONS: None. INDICATION: Mr. Patel was seen in the clinic. He has complained of a progressive decrease in vision. His clinical examination reveals mixed cataract. I explained options. I offered cataract surgery and I explained risks including but not limited to, infection, retinal detachment, loss of vision, need for additional surgery, and risks associated with anesthesia. We discussed implant options. He has requested a monofocal implant. He understands that he may require glasses for some activities following surgery. OPERATIVE DESCRIPTION: After informed consent was obtained and the risks, benefits, and alternatives were explained, the patient was brought to the operative suite and topical anesthesia was administered. The patient was then prepped and draped in the sterile fashion and attention was placed on the right eye. A sterile lid speculum was placed into the right eye to allow operative exposure. A full-thickness paracentesis was made in the temporal portion of the operative eye. Preservative-free lidocaine 0.1 mL was injected into the anterior chamber followed by viscoelastic. A full-thickness corneal incision was then made into the anterior chamber. A bent needle cystotome was used to create a small ada in the anterior capsule. The capsulorrhexis forceps was then used to create a 360-degree curvilinear capsulorrhexis. The nucleus was then removed using a phacoemulsification handpiece and the remaining cortical material was then removed with irrigation and aspiration handpiece. Following removal of the cortical material, the capsular bag was then inspected and noted to be free of any holes or tears. Viscoelastic was then injected into the capsular bag and the intraocular lens was inserted into the capsular bag. No complications occurred. The viscoelastic material was then removed from both the anterior and posterior chambers and from behind the IOL. The lens and capsular bag were then reinspected. The IOL was well centered and the capsular bag intact. The wound and paracentesis sites were inspected and hydrated with balanced saline solution. Both were found to be self-sealing. The intraocular pressure was assessed digitally and found to be within normal range. A good red reflex was noted at the completion of the procedure. No complications occurred during the operation. At the completion of the procedure, Maxitrol, Voltaren, and Iopidine drops were placed into the operative eye. A sterile eye shield was placed over the operative eye and the patient was transported to the postoperative recovery area having tolerated the procedure well. Postoperative instructions were given along with a postoperative appointment. The patient was advised to call with any questions or concerns. [facility] /[phone]
[2017-05-27 10:38] VITALS: BP 99/52
[2017-05-27] MEDS ORDERED: Dexamethasone 4 MG/ML SDV IV ONE (15:20)
[2017-05-27] MEDS ORDERED: Midazolam 1 MG/ML 2 ML SDV IV ONE (15:20)
== END 2017-05-27 10:40 | disposition home or self-care (01) ==
LOC: DL.SDS 07:44
PROVIDERS: ATTEND Ophthalmology
PROC: 08RJ3JZ Replacement of Right Lens with Synthetic Substitute, Percutaneous Approach (ICD-10-PCS; principal; 2017-05-27)
DX: H26.9 Unspecified cataract (principal); I12.9 Hypertensive chronic kidney disease with stage 1 through stage 4 chronic kidney disease, or unspecified chronic kidney disease; E11.22 Type 2 diabetes mellitus with diabetic chronic kidney disease; N18.9 Chronic kidney disease, unspecified; K74.60 Unspecified cirrhosis of liver; Z85.068 Personal history of other malignant neoplasm of small intestine; Z79.4 Long term (current) use of insulin
CPT/HCPCS: 00142; 66984; A9270; J1100; J1642; J2250; J3370; J7050; V2632

== ENCOUNTER 2017-06-09 21:43 | Inpatient (IN) | payer MEDICARE, BC ==
[2017-06-09 22:46] LABS: CHLORIDE,CL 101 mmol/L (101-111); SODIUM,NA 136 mmol/L (135-145)
--- NOTE | 2017-06-09 23:22 | PCM.HP ---
H&P History of Present Illness - General Date of Service: 06/09/17 Admit Problem/Dx: confusion Source of Information: EMS, Provider (ER), Other (called brother - left message) . No: Patient - History of Present Illness Initial Comments - Free Text/Narative: The patient is a 77-year-old who was seen in the emergency room. Information is limited since the patient is unable to give information. Brother is not available, called home and cell phone number, could only leave message. Discussed with the EMS service and ER provider Reviewed [facility] clinic reports. The patient is a 77-year-old gentleman with a history of a fall [place] liver cirrhosis, diabetes, hypertension, duodenal adenocarcinoma status post chemotherapy. The patient was not a surgical candidate due to poor health. The patient apparently had PET study scheduled for tomorrow and was taken to [place] by the brother. However the patient was confused and the brother brought him back to assisted living. He was noted to have confusion and per report his blood sugar was 22. EMS was called. When they arrived to the house blood sugar measurement was 175. The patient was confused. - Related Data Allergies/Adverse Reactions: Allergies Allergy/AdvReac Type Severity Reaction Status Date / Time No Known Allergies Allergy Verified 06/09/17 22:05 Home Medications: Home Meds Potassium Chloride 20 meq PO DAILY 12/24/16 [History] Bumetanide [Bumex] 1 mg PO DAILY 03/03/17 [History] Spironolactone [Aldactone] 25 mg PO BID 03/03/17 [History] Folic Acid 1 mg PO DAILY 05/15/17 [History] Iron Polysaccharide Complex [Ferrex 150] 150 mg PO DAILY 05/15/17 [History] Lactulose [Cephulac] 15 gm PO TID 05/15/17 [History] Omeprazole [Omeprazole] 20 mg PO ACBREAKFAST 05/15/17 [History] Insulin Aspart [Novolog Flexpen] 3 units SQ WITHDINNER 05/17/17 [History] Calcium Carbonate [Tums] 500 mg PO DAILY PRN 05/19/17 [History] Docusate Sodium [Colace] 100 mg PO BID 05/19/17 [History] Insulin Glarg,Human.Rec.Analog [Lantus] 18 units SQ BEDTIME 05/19/17 [History] Nystatin [Nystop] 1 gm TOP BID PRN 05/19/17 [History] Calcium Polycarbophil [Fibercon] 1 tab PO BID 05/20/17 [History] Ketorolac [Acular 0.5% Ophth Soln] 1 drop EYELF BID 05/22/17 [History] Prednisolone Acetate/Nepafenac [Prednisolone 1%-Nepafenac 0.1%] 1 drop EYELF ASDIRECTED 06/09/17 [History] Past Medical History HEENT History: Reports: Cataract, Impaired Vision, Other (See Below) Other HEENT History: diabetic eye exam no retinopathy Cardiovascular History: Reports: Heart Murmur, Hypertension, Other (See Below) Other Cardiovascular History: CHF Respiratory History: Reports: None Gastrointestinal History: Reports: Chronic Constipation, Cirrhosis, GERD, GI Bleed, Jaundice, Other (See Below) Other Gastrointestinal History: MALIGNANT NEOPLASM OF DUODENUM, adenocarcinoma Genitourinary History: Reports: Renal Disease, Other (See Below) Other Genitourinary History: left renal mass, kidney disease Musculoskeletal History: Reports: None Neurological History: Reports: None Psychiatric History: Reports: None Endocrine/Metabolic History: Reports: Diabetes, Type II Hematologic History: Reports: Anemia, Iron Deficiency, Other (See Below) Other Hematologic History: CALCIUM DEFICIENCY. THROMBOCYTOPENIA Immunologic History: Reports: None Oncologic (Cancer) History: Reports: Other (See Below) Other Oncologic History: Malignant neoplasm of the duodenum. Just finished round of chemo and radiation 02/27/2017 Dermatologic History: Reports: Other (See Below) Other Dermatologic History: CANDIDIASIS, numerous bruises - Infectious Disease History Infectious Disease History: Reports: None - Past Surgical History HEENT Surgical History: Reports: Cataract Surgery GI Surgical History: Reports: Cholecystectomy, Colonoscopy, EGD, Hernia, Inguinal Male Surgical History: Reports: Cystectomy, Kidney Stone Extraction, Lithotripsy ([facility]) Neurological Surgical History: Reports: None Social & Family History - Family History Family Medical History: Noncontributory HEENT: Reports: Cataract Cardiac: Reports: None Respiratory: Reports: None GI: Reports: None : Reports: None OBGYN: Reports: None Musculoskeletal: Reports: None Psychiatric: Reports: None Endocrine/Metabolic: Reports: Other (See Below) Other Endocrine/Metabolic Family History: some kind of diabetes Hematologic: Reports: None Immunologic: Reports: None Dermatologic: Reports: None Oncologic: Reports: None - Tobacco Use Smoking Status *Q: Unknown Ever Smoked Tobacco Use Comment: unable to obtain information Second Hand Smoke Exposure: No - Caffeine Use Caffeine Use: Reports: Other Caffeine Use Comment: unable to obtain information - Recreational Drug Use Recreational Drug Use: No - Living Situation & Occupation Living situation: Reports: Alone, Assisted Living Occupation: Retired H&P Review of Systems - Review of Systems: Review Of Systems: See Below (Limited) Psychiatric: Reports: Confusion Exam - Exam Exam: See Below - Vital Signs Vital Signs: Last Vital Signs Temp 36.2 C 06/09/17 21:49 Pulse 98 06/09/17 21:49 Resp 16 06/09/17 21:49 BP 140/99 H 06/09/17 21:49 Pulse Ox 100 06/09/17 21:49 Weight: 75.296 kg - Exam General: Alert. No: Oriented HEENT: Scleral Icterus Neck: Supple Lungs: Clear to Auscultation, Normal Respiratory Effort Cardiovascular: Regular Rate, Regular Rhythm GI/Abdominal Exam: Normal Bowel Sounds, Soft, Non-Tender, Other (Obese, ascites) Extremities: Pedal Edema (2+ b/l) Skin: Other (Diffuse upper extremity bruise and hematoma.) Neuro Extensive - Mental Status: Alert. No: Oriented x3 Neuro Extensive - Motor, Sensory, Reflexes: Other (Moving extremities but not following commands) Psychiatric: Alert. No: Agitated - Patient Data Lab Results Last 24 hrs: CT head reported as no acute findings. Result Diagrams: 06/09/17 22:18 06/09/17 22:18 EKG INTERPRETATION EKG Date: 06/09/17 Rhythm: NSR *Q Meaningful Use (ADM) - VTE *Q VTE Criteria *Q: - Stroke *Q Stroke Criteria *Q: - AMI *Q AMI Criteria *Q: - Problem List (1) Acute encephalopathy SNOMED Code(s): 6375512 ICD Code: G93.40 - ENCEPHALOPATHY, UNSPECIFIED Status: Acute Current Visit: Yes Problem List Initiated/Reviewed/Updated: Yes Orders Last 24hrs: Active Orders 24 hr Category Date Time Status BASIC METABOLIC PANEL,BMP [CHEM] AM Lab 06/10/17 05:15 Ordered CBC WITH AUTO DIFF [HEME] AM Lab 06/10/17 05:15 Ordered HEPATIC FUNCTION PANEL,HFP [CHEM] AM Lab 06/10/17 05:11 Ordered Lactulose [Cephulac] Med 06/09/17 23:30 Ordered 20 gm PO Q6H Medication Orders Lactulose (Cephulac) 20 gm PO Q6H [facility] Assessment/Plan Comment:: Acute encephalopathy Initially the EMS was called for a low blood sugar but on repeated rechecks his blood sugars were good. We will monitor the patient's blood sugars for now hold the insulin Acute encephalopathy might relate to elevated ammonia level and beta result of acute hepatitic encephalopathy due to liver cirrhosis Will give the patient lactulose Repeat ammonia level The patient has an elevated lactic acid level which is likely due to liver failure I do not think the patient is septic for now Obtain blood cultures, urine analysis Doesn't appear to have peritonitis symptoms Lower extremity edema, ascites Continue Lasix, spironolactone Follow electrolytes and renal function test The patient has diffuse bruises but he is also at high risk for DVT given the adenocarcinoma We'll give subcutaneous heparin for DVT prophylaxis
--- NOTE | 2017-06-09 23:34 | EDM.PDOC ---
ED HPI GENERAL MEDICAL PROBLEM - General Chief Complaint: General Stated Complaint: [facility] Time Seen by Provider: 06/09/17 22:00 Source of Information: Reports: EMS, Provider (ER). Denies: Patient History Limitations: Reports: Altered Mental Status - History of Present Illness INITIAL COMMENTS - FREE TEXT/NARRATIVE: ED via ambulance from local [place] with reported BS of 22, no prior at facility. EMS rpoerted glucose 178 on scene. Patient confused. Brother reported that he had driven from arriving around 6 pm to pickle cutter patient and take him back to and stay with him for the night as clinic appointment scheduled in am with oncologist. On arriving patient seemed confused and seemed to stare out of car window and didnt make sense. Once they reached patient said he wanted to go home so brother turned around and drove him back to [place]. 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 - Related Data Allergies Allergy/AdvReac Type Severity Reaction Status Date / Time No Known Allergies Allergy Verified 06/09/17 22:05 Home Meds: Home Meds Potassium Chloride 20 meq PO DAILY 12/24/16 [History] Bumetanide [Bumex] 1 mg PO DAILY 03/03/17 [History] Spironolactone [Aldactone] 25 mg PO BID 03/03/17 [History] Folic Acid 1 mg PO DAILY 05/15/17 [History] Iron Polysaccharide Complex [Ferrex 150] 150 mg PO DAILY 05/15/17 [History] Lactulose [Cephulac] 15 gm PO TID 05/15/17 [History] Omeprazole [Omeprazole] 20 mg PO ACBREAKFAST 05/15/17 [History] Insulin Aspart [Novolog Flexpen] 3 units SQ WITHDINNER 05/17/17 [History] Calcium Carbonate [Tums] 500 mg PO DAILY PRN 05/19/17 [History] Docusate Sodium [Colace] 100 mg PO BID 05/19/17 [History] Insulin Glarg,Human.Rec.Analog [Lantus] 18 units SQ BEDTIME 05/19/17 [History] Nystatin [Nystop] 1 gm TOP BID PRN 05/19/17 [History] Calcium Polycarbophil [Fibercon] 1 tab PO BID 05/20/17 [History] Ketorolac [Acular 0.5% Ophth Soln] 1 drop EYELF BID 05/22/17 [History] Prednisolone Acetate/Nepafenac [Prednisolone 1%-Nepafenac 0.1%] 1 drop EYELF ASDIRECTED 06/09/17 [History] Past Medical History HEENT History: Reports: Cataract, Impaired Vision, Other (See Below) Other HEENT History: diabetic eye exam no retinopathy Cardiovascular History: Reports: Heart Murmur, Hypertension, Other (See Below) Other Cardiovascular History: CHF Respiratory History: Reports: None Gastrointestinal History: Reports: Chronic Constipation, Cirrhosis, GERD, GI Bleed, Jaundice, Other (See Below) Other Gastrointestinal History: MALIGNANT NEOPLASM OF DUODENUM, adenocarcinoma Genitourinary History: Reports: Renal Disease, Other (See Below) Other Genitourinary History: left renal mass, kidney disease Musculoskeletal History: Reports: None Neurological History: Reports: None Psychiatric History: Reports: None Endocrine/Metabolic History: Reports: Diabetes, Type II Hematologic History: Reports: Anemia, Iron Deficiency, Other (See Below) Other Hematologic History: CALCIUM DEFICIENCY. THROMBOCYTOPENIA Immunologic History: Reports: None Oncologic (Cancer) History: Reports: Other (See Below) Other Oncologic History: Malignant neoplasm of the duodenum. Just finished round of chemo and radiation 02/27/2017 Dermatologic History: Reports: Other (See Below) Other Dermatologic History: CANDIDIASIS, numerous bruises - Infectious Disease History Infectious Disease History: Reports: None - Past Surgical History HEENT Surgical History: Reports: Cataract Surgery GI Surgical History: Reports: Cholecystectomy, Colonoscopy, EGD, Hernia, Inguinal Male Surgical History: Reports: Cystectomy, Kidney Stone Extraction, Lithotripsy ([facility]) Neurological Surgical History: Reports: None Social & Family History - Family History Family Medical History: Noncontributory HEENT: Reports: Cataract Cardiac: Reports: None Respiratory: Reports: None GI: Reports: None : Reports: None OBGYN: Reports: None Musculoskeletal: Reports: None Psychiatric: Reports: None Endocrine/Metabolic: Reports: Other (See Below) Other Endocrine/Metabolic Family History: some kind of diabetes Hematologic: Reports: None Immunologic: Reports: None Dermatologic: Reports: None Oncologic: Reports: None - Tobacco Use Smoking Status *Q: Unknown Ever Smoked Tobacco Use Comment: unable to obtain information Second Hand Smoke Exposure: No - Caffeine Use Caffeine Use: Reports: Other Caffeine Use Comment: unable to obtain information - Recreational Drug Use Recreational Drug Use: No - Living Situation & Occupation Living situation: Reports: Alone, Assisted Living Occupation: Retired ED ROS GENERAL - Review of Systems Review Of Systems: Unable To Obtain ED EXAM, GENERAL - Physical Exam Exam: See Below Exam Limited By: Altered Mental Status General Appearance: Alert, Thin Eye Exam: Bilateral Eye: EOMI, PERRL Ears: Normal External Exam Nose: Normal Inspection Throat/Mouth: Normal Inspection Head: Atraumatic, Normocephalic Neck: Normal Inspection Respiratory/Chest: No Respiratory Distress, Lungs Clear, Normal Breath Sounds Cardiovascular: Normal Peripheral Pulses, Regular Rate, Rhythm GI/Abdominal: Normal Bowel Sounds, Soft, Hepatomegaly Back Exam: Normal Inspection Extremities: Pedal Edema (pedal ankle), Other (generalized bruising to upper extremities) Neurological: Alert, Oriented (person only,), Confused, Disoriented. No: Normal Cognition Skin Exam: Warm, Dry, Intact, Ecchymosis Course - Vital Signs Last Recorded V/S: Last Vital Signs Temp 97.4 F 06/09/17 23:32 Pulse 97 06/09/17 23:32 Resp 16 06/09/17 23:32 BP 133/49 L 06/09/17 23:32 Pulse Ox 100 06/09/17 23:32 - Orders/Labs/Meds Orders: Active Orders 24 hr Category Date Time Status Blood Glucose Check, Bedside [RC] ONETIME Care 06/09/17 21:52 Active EKG 12 Lead [EKG Documentation Completion] [RC] URGENT Care 06/09/17 21:53 Active BASIC METABOLIC PANEL,BMP [CHEM] AM Lab 06/10/17 05:11 Ordered CBC WITH AUTO DIFF [HEME] AM Lab 06/10/17 05:15 Ordered CULTURE BLOOD [BC] Stat Lab 06/09/17 22:18 Results CULTURE BLOOD [BC] Stat Lab 06/09/17 22:40 Received HEPATIC FUNCTION PANEL,HFP [CHEM] AM Lab 06/10/17 05:11 Ordered UA W/MICROSCOPIC [URIN] Stat Lab 06/09/17 21:52 Uncollected Bumetanide [Bumex] Med 06/10/17 09:00 Active 1 mg PO DAILY Folic Acid Med 06/10/17 09:00 Active 1 mg PO DAILY Iron Polysaccharides Complex [Ferrex 150] Med 06/10/17 09:00 Active 150 mg PO DAILY Lactulose [Cephulac] Med 06/09/17 23:30 Active 20 gm PO Q6H Omeprazole Med 06/10/17 06:00 Active 20 mg PO ACBREAKFAST Potassium Chloride [Klor-Con 10] Med 06/10/17 09:00 Active 20 meq PO DAILY Spironolactone [Aldactone] Med 06/10/17 09:00 Active 25 mg PO BID Blood Culture x2 Reflex Set [OM.PC] Stat Oth 06/09/17 21:52 Ordered Medication Orders Bumetanide (Bumex) 1 mg PO DAILY [facility] Folic Acid (Folic Acid) 1 mg PO DAILY [facility] Heparin Sodium (Porcine) (Heparin Sodium) 5,000 units SUBCUT Q8HR [facility] Insulin Aspart (Novolog) 0 unit SUBCUT TIDAC [facility] PRN Reason: Protocol Lactulose (Cephulac) 20 gm PO Q6H [facility] Last Admin: 06/10/17 00:46 Dose: 20 gm Omeprazole (Omeprazole) 20 mg PO ACBREAKFAST [facility] Polysaccharide Iron Complex (Ferrex 150) 150 mg PO DAILY [facility] Potassium Chloride (Klor-Con 10) 20 meq PO DAILY [facility] Sodium Chloride (Saline Flush) 10 ml FLUSH ASDIRECTED PRN PRN Reason: Keep Vein Open Spironolactone (Aldactone) 25 mg PO BID [facility] Labs: Laboratory Tests 06/09/17 06/09/17 06/09/17 Range/Units 21:55 22:18 22:18 WBC 4.0 L (5.0-10.0) 10^3/uL RBC 3.27 L (4.6-6.2) 10^6/uL Hgb 10.4 L (14.0-18.0) g/dL Hct 31.1 L (40.0-54.0) % MCV 95.1 (80-100) fL MCH 31.8 (27.0-34.0) pg MCHC 33.4 (33.0-35.0) g/dL Plt Count 131 L (150-450) 10^3/uL Neut % (Auto) 74.9 (42.2-75.2) % Lymph % (Auto) 15.2 L (20.5-50.1) % [place] % (Auto) 9.2 H (2-8) % Eos % (Auto) 0.5 L (1.0-3.0) % Baso % (Auto) 0.2 (0.0-1.0) % PT (9.0-12.0) SEC INR (0.9-1.2) Sodium 136 (135-145) mmol/L Potassium 4.3 (3.6-5.0) mmol/L Chloride 101 (101-111) mmol/L Carbon Dioxide 23.0 (21.0-31.0) mmol/L Anion Gap 16.3 BUN 25 H (7-18) mg/dL Creatinine 1.4 H (0.6-1.3) mg/dL Est Cr Clr Drug Dosing TNP Estimated GFR (MDRD) 49 BUN/Creatinine Ratio 17.85 Glucose 175 H (74-105) mg/dL POC Glucose 180 H (83-110) mg/dl Lactic Acid (0.5-2.2) mmol/L Calcium 8.6 (8.4-10.2) mg/dl Total Bilirubin 1.3 H (0.2-1.0) mg/dL AST 63 H (10-42) IU/L ALT 37 (10-60) IU/L Alkaline Phosphatase 470 H (42-121) IU/L Ammonia (11-35) umol/L Total Protein 5.2 L (6.7-8.2) g/dl Albumin 2.1 L (3.2-5.5) g/dl Globulin 3.1 Albumin/Globulin Ratio 0.68 Amylase 23 L (28-100) U/L Lipase 30 (22-51) U/L 06/09/17 06/09/17 06/09/17 Range/Units 22:18 22:18 22:40 WBC (5.0-10.0) 10^3/uL RBC (4.6-6.2) 10^6/uL Hgb (14.0-18.0) g/dL Hct (40.0-54.0) % MCV (80-100) fL MCH (27.0-34.0) pg MCHC (33.0-35.0) g/dL Plt Count (150-450) 10^3/uL Neut % (Auto) (42.2-75.2) % Lymph % (Auto) (20.5-50.1) % [place] % (Auto) (2-8) % Eos % (Auto) (1.0-3.0) % Baso % (Auto) (0.0-1.0) % PT 12.7 H (9.0-12.0) SEC INR 1.3 H (0.9-1.2) Sodium (135-145) mmol/L Potassium (3.6-5.0) mmol/L Chloride (101-111) mmol/L Carbon Dioxide (21.0-31.0) mmol/L Anion Gap BUN (7-18) mg/dL Creatinine (0.6-1.3) mg/dL Est Cr Clr Drug Dosing Estimated GFR (MDRD) BUN/Creatinine Ratio Glucose (74-105) mg/dL POC Glucose (83-110) mg/dl Lactic Acid 3.4 H (0.5-2.2) mmol/L Calcium (8.4-10.2) mg/dl Total Bilirubin (0.2-1.0) mg/dL AST (10-42) IU/L ALT (10-60) IU/L Alkaline Phosphatase (42-121) IU/L Ammonia 153 H (11-35) umol/L Total Protein (6.7-8.2) g/dl Albumin (3.2-5.5) g/dl Globulin Albumin/Globulin Ratio Amylase (28-100) U/L Lipase (22-51) U/L Meds: Medications Generic Name Dose Route Start Last Admin Trade Name Freq PRN Reason Stop Dose Admin Bumetanide 1 mg 06/10/17 09:00 Bumex PO DAILY [facility] Folic Acid 1 mg 06/10/17 09:00 Folic Acid PO DAILY [facility] Heparin Sodium (Porcine) 5,000 units 06/10/17 06:00 Heparin Sodium SUBCUT Q8HR [facility] Insulin Aspart 0 unit 06/10/17 08:00 Novolog SUBCUT TIDAC [facility] Protocol Lactulose 20 gm 06/09/17 23:30 06/10/17 00:46 Cephulac PO 20 gm Q6H [facility] Administration Omeprazole 20 mg 06/10/17 06:00 Omeprazole PO ACBREAKFAST [facility] Polysaccharide Iron Complex 150 mg 06/10/17 09:00 Ferrex 150 PO DAILY [facility] Potassium Chloride 20 meq 06/10/17 09:00 Klor-Con 10 PO DAILY [facility] Sodium Chloride 10 ml 06/09/17 23:32 Saline Flush FLUSH ASDIRECTED PRN Keep Vein Open Spironolactone 25 mg 06/10/17 09:00 Aldactone PO BID [facility] - Radiology Interpretation Free Text/Narrative:: head CT, no acute findings - Re-Assessments/Exams Free Text/Narrative Re-Assessment/Exam: TC consult Dr. Buitrago. Here to assess patient, Agree to admit for observation for further eval and maangement of altered mental status with elevated ammonia level Departure - Departure Time of Disposition: 23:45 Disposition: Admitted As Inpatient 68 Condition: Undetermined Clinical Impression: Hyperammonemia Altered mental status, unspecified Qualifiers: Altered mental status type: disorientation Qualified Code(s): R41.0 - Disorientation, unspecified Cirrhosis Qualifiers: Hepatic cirrhosis type: unspecified hepatic cirrhosis Ascites presence: with ascites Qualified Code(s): K74.60 - Unspecified cirrhosis of liver Skin tear of left elbow without complication Qualifiers: Encounter type: initial encounter Qualified Code(s): S51.012A - Laceration without foreign body of left elbow, initial encounter - Discharge Information - My Orders Last 24 Hours: My Active Orders 06/09/17 21:52 Blood Glucose Check, Bedside [RC] ONETIME UA W/MICROSCOPIC [URIN] Stat Blood Culture x2 Reflex Set [OM.PC] Stat 06/09/17 21:53 EKG 12 Lead [EKG Documentation Completion] [RC] URGENT 06/09/17 22:18 CULTURE BLOOD [BC] Stat 06/09/17 22:40 CULTURE BLOOD [BC] Stat - Assessment/Plan Last 24 Hours: My Active Orders 06/09/17 21:52 Blood Glucose Check, Bedside [RC] ONETIME UA W/MICROSCOPIC [URIN] Stat Blood Culture x2 Reflex Set [OM.PC] Stat 06/09/17 21:53 EKG 12 Lead [EKG Documentation Completion] [RC] URGENT 06/09/17 22:18 CULTURE BLOOD [BC] Stat 06/09/17 22:40 CULTURE BLOOD [BC] Stat
[2017-06-10] MEDS: Lactulose Soln 10 GM/15 ML 30 ML UD Cup PO SCH ×5 (00:46→23:15)
[2017-06-10] MEDS: Heparin Sodium 5,000 Units/ML Vial SUBCUT SCH ×3 (06:35→21:32)
[2017-06-10] MEDS: Omeprazole 20 MG Cap.CR PO SCH (06:35)
[2017-06-10 07:04] LABS: CHLORIDE,CL 103 mmol/L (101-111); SODIUM,NA 139 mmol/L (135-145)
[2017-06-10] MEDS: Insulin Aspart 100 Units/ML 3 ML Pen SUBCUT SCH ×3 (09:09→17:14)
[2017-06-10] MEDS: Iron Polysaccharides Complex 150 MG Cap PO SCH (09:10)
[2017-06-10] MEDS: Potassium Chloride 10 MEQ Tab.ER PO SCH (09:10)
[2017-06-10] MEDS: Spironolactone 25 MG Tab PO SCH ×2 (09:11→21:33)
[2017-06-10] MEDS: Folic Acid 1 MG Tab PO SCH (09:14)
[2017-06-10] MEDS: Bumetanide 1 MG Tab PO SCH (09:46)
--- NOTE | 2017-06-10 15:28 | PCM.PN ---
- General Info Date of Service: 06/10/17 Admission Dx/Problem (Free Text): confusion Subjective Update: The patient continue to be confused but improved. Now he is talking in sentences. He cannot still recall where he is and what exactly happened yesterday. He denies chest pain. Has been taking the lactulose. Had a large bowel movement yesterday. No apparent pain, no fever. - Review of Systems General: Reports: Weakness. Denies: Fever Pulmonary: Denies: Shortness of Breath Cardiovascular: Denies: Chest Pain Gastrointestinal: Denies: Abdominal Pain Neurological: Reports: Confusion - Patient Data Vitals - Most Recent: Last Vital Signs Temp 36.2 C 06/10/17 11:00 Pulse 87 06/10/17 11:00 Resp 20 06/10/17 11:00 BP 128/44 L 06/10/17 11:00 Pulse Ox 100 06/10/17 11:00 Weight - Most Recent: 75.296 kg I&O - Last 24 Hours: Intake & Output 06/10/17 06/10/17 06/10/17 06:59 14:59 22:59 Intake Total 150 Balance 150 Lab Results Last 24 Hours: Laboratory Results - last 24 hr 06/10/17 Range/Units 11:13 POC Glucose 133 H (83-110) mg/dl Med Orders - Current: Current Medications Bumetanide (Bumex) 1 mg PO DAILY [facility] Last Admin: 06/10/17 09:46 Dose: 1 mg Folic Acid (Folic Acid) 1 mg PO DAILY [facility] Last Admin: 06/10/17 09:14 Dose: 1 mg Heparin Sodium (Porcine) (Heparin Sodium) 5,000 units SUBCUT Q8HR [facility] Last Admin: 06/10/17 14:18 Dose: 5,000 units Insulin Aspart (Novolog) 0 unit SUBCUT TIDAC [facility] PRN Reason: Protocol Last Admin: 06/10/17 11:28 Dose: Not Given Lactulose (Cephulac) 20 gm PO Q6H [facility] Last Admin: 06/10/17 12:10 Dose: 20 gm Omeprazole (Omeprazole) 20 mg PO ACBREAKFAST [facility] Last Admin: 06/10/17 06:35 Dose: 20 mg Polysaccharide Iron Complex (Ferrex 150) 150 mg PO DAILY [facility] Last Admin: 06/10/17 09:10 Dose: 150 mg Potassium Chloride (Klor-Con 10) 20 meq PO DAILY [facility] Last Admin: 06/10/17 09:10 Dose: 20 meq Sodium Chloride (Saline Flush) 10 ml FLUSH ASDIRECTED PRN PRN Reason: Keep Vein Open Spironolactone (Aldactone) 25 mg PO BID [facility] Last Admin: 06/10/17 09:11 Dose: 25 mg - Exam General: Alert. No: Oriented Neck: Supple Lungs: Normal Respiratory Effort, Rhonchi (basilar) Cardiovascular: Regular Rate, Regular Rhythm GI/Abdominal Exam: Normal Bowel Sounds, Soft, Other (obese/ascites) Extremities: No Pedal Edema Skin: Warm, Dry Neurological: Normal Speech Psy/Mental Status: Alert - Problem List & Annotations (1) Acute encephalopathy SNOMED Code(s): 4376693 Code(s): G93.40 - ENCEPHALOPATHY, UNSPECIFIED Status: Acute Current Visit : Yes - Problem List Review Problem List Initiated/Reviewed/Updated: Yes - Plan Plan:: Acute encephalopathy likely due to acute hepatic encephalopathy Initially the EMS was called for a low blood sugar but on repeated rechecks his blood sugars were good. We will monitor the patient's blood sugars for now hold the insulin acute hepatitic encephalopathy due to liver cirrhosis Will give the patient lactulose Repeat ammonia level is improved follow clinically The patient had an elevated lactic acid level on admission which is likely due to liver failure I do not think the patient is septic for now pending blood cultures, urine analysis Doesn't appear to have peritonitis symptoms Lower extremity edema, ascites Continue Lasix, spironolactone Follow electrolytes and renal function test The patient has diffuse bruises but he is also at high risk for DVT given the adenocarcinoma We'll give subcutaneous heparin for DVT prophylaxis
--- NOTE | 2017-06-10 18:29 | EKG ---
06/09/2017 - REAGAN GONSALVES - TIME: 2155 hours. EKG per my reading, shows sinus rhythm with no acute ST changes. [facility] /[id number]
[2017-06-11] MEDS: Lactulose Soln 10 GM/15 ML 30 ML UD Cup PO SCH ×4 (05:44→23:07)
[2017-06-11] MEDS: Omeprazole 20 MG Cap.CR PO SCH (05:45)
[2017-06-11] MEDS: Heparin Sodium 5,000 Units/ML Vial SUBCUT SCH ×3 (05:45→22:07)
--- NOTE | 2017-06-11 09:51 | EKG ---
06/09/2017- REAGAN GONSALVES - TIME: 2154 hours. EKG per my reading shows sinus rhythm at a rate of 93. [facility] /[id number]
[2017-06-11] MEDS: Folic Acid 1 MG Tab PO SCH (10:22)
[2017-06-11] MEDS: Iron Polysaccharides Complex 150 MG Cap PO SCH (10:22)
[2017-06-11] MEDS: Spironolactone 25 MG Tab PO SCH ×2 (10:22→21:06)
[2017-06-11] MEDS: Bumetanide 1 MG Tab PO SCH (10:22)
[2017-06-11] MEDS: Insulin Aspart 100 Units/ML 3 ML Pen SUBCUT SCH ×3 (10:23→17:53)
[2017-06-11] MEDS: Potassium Chloride 10 MEQ Tab.ER PO SCH (10:23)
[2017-06-12] MEDS: Heparin Sodium 5,000 Units/ML Vial SUBCUT SCH (05:51)
[2017-06-12] MEDS: Omeprazole 20 MG Cap.CR PO SCH (05:51)
[2017-06-12] MEDS: Lactulose Soln 10 GM/15 ML 30 ML UD Cup PO SCH ×4 (05:51→21:31)
--- NOTE | 2017-06-12 07:16 | PN ---
DATE: 06/11/2017 SUBJECTIVE: Mr. Patel is a 77-year-old gentleman known to me from previous care. He has a long complicated recent past medical history. His history includes chronic liver disease with cirrhosis and hepatic encephalopathy. He has had ascites with large volume paracenteses. 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 He was seen at the [facility] where duodenal stent was placed. He underwent chemotherapy and radiation for the adenocarcinoma. On 01/31, he was admitted to [facility] following discharge from [facility]. He had been too weak at home and was admitted to [facility] and fell the first night due to generalized debility and weakness. He has seen at the hospital and was readmitted here from 03/03 to 03/06 and then was transferred to [facility] in [place] for further recovery and to work with Physical and Occupational Therapy. On 04/14, he was discharged to [facility] where he has been doing fairly well until this admission. He and his brother were driving to [place] on 06/09 to have a PET scan performed for further evaluation of his carcinoma. He was confused. The brother turned around and drove all the way back to [place]. He initially was thought to be hypoglycemic, but on admission, it was found that he had an elevated ammonia level of 153. He was admitted for further management. Review of his clinical data since the time of admission shows adequate fluid intake. He is voiding and moving his bowels. His appetite is somewhat improved, and he seems to be tolerating his diet. Vital signs have been stable. He has remained afebrile. Two sets of blood cultures were drawn at time of admission. These have remained without growth. His labs are reviewed. He apparently was transfused 2 units of blood on 06/02, at time of admission, hemoglobin and hematocrit were 10.4 and 31.5. His ammonia level improved following admission to 78. OBJECTIVE: General: He is lying in his room. He is somewhat confused. He appears to have declined significantly since I last saw him in mid April. He denied any pain or acute issues at the moment. Vital Signs: Blood pressure 125/48, pulse 87, respiratory rate 20, oxygen saturation 100% on room air, and he is afebrile. HEENT: Unremarkable. ENT was clear. Chest: Diminished, but clear bilateral breath sounds. Heart: Regular rate and rhythm. Abdomen: Soft and benign. Extremities: No edema. He had extensive bruising on the bilateral upper extremities, which has been more or less a chronic finding over the last few months. ASSESSMENT AND PLAN: At this point, it appears that Mr. Patel will need to return to a correction facility to regain strength again. He is too weak at this point to return to assisted living. He also appears to be in decline. At the time that he was transferred to assisted living for correction bed, it was felt that at some point, this would come about. I did have a chance to speak with his sister at length. We explained to her the findings since admission and the plan to seek a bed at [facility]. Call was placed to [facility], and they will evaluate him for re-admission. No other changes are made today. [facility] /[id number] AMY
--- NOTE | 2017-06-12 07:22 | PN ---
DATE: 06/12/2017 Overnight, Mr. Patel apparently had a large dark foul-smelling stool. Sample was collected and sent for Hemoccult and was positive. Repeat hemoglobin and hematocrit were ordered, and hemoglobin and hematocrit are now 9.1 and 27 compared to 10.4 and 31 at the time of admission, it has been slowly coming down. We have ordered a repeat hemoglobin and hematocrit for 12:00 today, and we have ordered him to be typed and screened as it is likely he may need further transfusions. The appearance of the Hemoccult-positive stools and the declining hemoglobin and hematocrit are troublesome given the fact that Mr. Patel seems to be in decline. His hepatic encephalopathy also seems to be worsening despite adherence to his lactulose. Additional labs will be performed this morning including a repeat ammonia level as well as BUN and creatinine. I will speak to his nephew, Abimael Campos, later this morning and inform him of these changes. At some point, we may need to consider comfort care as Mr. Patel appears to be in ongoing decline due to his multiple comorbid issues. [facility] /[id number] MTDD
[2017-06-12] MEDS: Insulin Aspart 100 Units/ML 3 ML Pen SUBCUT SCH ×3 (11:15→21:32)
[2017-06-12] MEDS: Spironolactone 25 MG Tab PO SCH (16:23)
[2017-06-12] MEDS: Bumetanide 1 MG Tab PO SCH (16:24)
[2017-06-12] MEDS: Folic Acid 1 MG Tab PO SCH (16:26)
[2017-06-12] MEDS: Iron Polysaccharides Complex 150 MG Cap PO SCH (16:26)
[2017-06-12] MEDS: Potassium Chloride 10 MEQ Tab.ER PO SCH (16:27)
[2017-06-12] MEDS ORDERED: Atropine 1% Ophth Soln 5 ML BOTTLE SL PRN (18:38)
[2017-06-12] MEDS ORDERED: LORazepam 2 MG/ML Syringe IVPUSH PRN (18:38)
[2017-06-12] MEDS: Sodium Chloride 0.9% 10 ML Syringe FLUSH PRN (21:57)
[2017-06-12] MEDS: Morphine 2 MG/ML Syringe IVPUSH PRN (21:57)
[2017-06-13] MEDS: Sodium Chloride 0.9% 10 ML Syringe FLUSH PRN (04:28)
[2017-06-13] MEDS: Morphine 2 MG/ML Syringe IVPUSH PRN (04:28)
--- NOTE | 2017-06-13 10:18 | PN ---
DATE: 06/12/2017 SUBJECTIVE: There has been a significant change in Mr. Patel's status today. He has become much more lethargic and confused. He is nonverbal. When he does speak, the content of his speech is incoherent. Overnight, he passed a large melena stool which was guaiac positive. Hemoglobin and hematocrit have declined somewhat but are relatively stable. Of concern, is the fact a repeat ammonia this morning has gone up to 248. At the time of admission, ammonia was 153, went down to 78, and now has gone back up to 248. This is concerning for progression of his advanced liver disease. The melena stool also raises the question of whether there is possibly a variceal bleed as well. However, vital signs have remained relatively stable, although he did have some slight tachycardia on one reading this morning. Otherwise, pulse and blood pressure have remained stable. I did call his nephew, Abimael Campos, this morning. Abimael's mother is Mathieu's sister. I spoke with her yesterday and, at that point, she was hoping for better progress. Mathieu and his mother did come to the hospital later in the day; and Mathieu's brother, Sarwat, was also present. We met in Mr. Patel's room. His three family members were present as well as the charge nurse, and we reviewed the significant changes within the last 24 hours. His sister was moved by the fact that his clinical status has declined. He is nonverbal. Even she cannot get him to respond in a meaningful way. Given these changes, family was more open to discussing possible changes in his management. I also reassured them that I had discussed all this at length with Mathieu's primary physician, Dr. Medardo Wiley, and informed them that Dr. Wiley and I were in agreement with his current status and its significance as well as suggestions for ongoing care. There are two main issues right now. 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 At this point, although it may be active, it is not the primary concern. Mathieu has intermittently stated he did not wish to pursue further treatment, although he did return to his Oncology and had plans for PET scan, but this does not impact on our current decision making. Of greater concern is the fact that he appears to be now in end-stage hepatic failure, and may in fact, be developing hepatorenal failure as well, based on changes in his lab work. Repeat lab work this morning shows a declining hemoglobin and hematocrit of 9.1 and 27. This was done following the melena stool. Lab work was repeated 6 hours later, and hemoglobin and hematocrit were essentially unchanged. We did order a type and screen in the event of a need for blood transfusion. BUN and creatinine this morning were 25 and 1.7 with a declining GFR of 39. Blood sugars have remained relatively stable. As mentioned above, ammonia has gone up significantly to 248. At this time, we feel we are looking at terminal liver disease. We really do not have any options or other recommendations for this. Given his age and other advanced diseases, he is certainly not a candidate for anything such as a liver transplant, and this is not even an option to discuss. Mr. Patel has been in decline for the last several months, and the family has finally realized this , and at the end of a long discussion, everyone agreed that our priority will be on comfort measures. Mr. Patel clearly cannot return to assisted living environment. We will keep him here at the hospital over the weekend as his does seem imminent, and we will continue to provide comfort care. PHYSICAL EXAMINATION: General: He is lying in bed. When he is awake, he is confused and really does not participate in any meaningful way and does not answer, and content of his speech is garbled and inappropriate. Vital Signs: Blood pressure was 144/64; pulse this morning was 112, but on recheck later in the day, it was 80; respiratory rate 20; oxygen saturation 100% on room air; and he is afebrile. HEENT: Unremarkable. Mouth showed dry mucous membranes. Chest: Showed clear but diminished bilateral breath sounds. Heart: Showed regular rate and rhythm. Abdomen: Soft and benign. Extremities: Showed no edema. Neurological: He was confused. He was moving spontaneously. ASSESSMENT AND PLAN: We reviewed all of his medications. All of his oral medications were discontinued. He does have IV access, and orders were written for morphine 2 mg IV every 4 hours as needed for pain or respiratory distress. There also was an order for Ativan 0.5 mg IV every 6 hours as needed for anxiety or agitation, and an order was also written for atropine eyedrops to be used orally for excess secretions. IV fluids will not be continued or administered. An order was placed for comfort care. We may consider swing bed admission depending on the events of the weekend. As mentioned above, Mr. Patel cannot return to assisted living, and at this point, admission to correction would be short-lived, and terminal end-of-life care can be provided in our environment. Our promise to the family was to keep him as comfortable as possible and to keep them informed of any changes. Everyone was in agreement with this plan. 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 He has been in decline and now appears to be in a terminal situation with rapid decline in his hepatic function and what appears to be development of hepatorenal failure. PROGNOSIS: [facility] /[id number] MTDD
--- NOTE | 2017-06-13 12:27 | PCM.PN ---
- General Info Date of Service: 06/13/17 Admission Dx/Problem (Free Text): Pt was admitted with : confusion Subjective Update: The patient continue to be confused and lethargic, he is awake and talking but not responding to the question asked Functional Status: Reports: Pain Controlled, Urinating - Review of Systems General: Denies: Fever, Chills HEENT: Denies: Headaches, Sore Throat Pulmonary: Denies: Shortness of Breath, Wheezing Cardiovascular: Denies: Chest Pain Gastrointestinal: Denies: Abdominal Pain, Nausea, Vomiting Musculoskeletal: Denies: Leg Pain, Foot Pain Neurological: Denies: Confusion Psychiatric: Reports: Confusion Systems Review Comment:: The pt is awake and eyes open but he is not responding to the question. He keeps talking that does not not make any sense. and ROS could not complete because of pt factors - Patient Data Vitals - Most Recent: Last Vital Signs Temp 36.3 C 06/13/17 08:00 Pulse 93 06/13/17 08:00 Resp 20 06/13/17 08:00 BP 139/58 L 06/13/17 08:00 Pulse Ox 100 06/13/17 08:00 Weight - Most Recent: 75.296 kg Lab Results Last 24 Hours: Laboratory Results - last 24 hr 06/12/17 06/12/17 Range/Units 12:10 18:11 Hgb 9.2 L (14.0-18.0) g/dL Hct 27.5 L (40.0-54.0) % POC Glucose 191 H (83-110) mg/dl Med Orders - Current: Current Medications Atropine Sulfate (Atropine 1% Oph Soln) 0 ml SL Q2H PRN PRN Reason: Other Lorazepam (Ativan) 0.5 mg IVPUSH Q6H PRN PRN Reason: Anxiety Morphine Sulfate (Morphine) 2 mg IVPUSH Q4H PRN PRN Reason: Other Last Admin: 06/13/17 04:28 Dose: 2 mg Sodium Chloride (Saline Flush) 10 ml FLUSH ASDIRECTED PRN PRN Reason: Keep Vein Open Last Admin: 06/13/17 04:28 Dose: 10 ml Discontinued Medications Bumetanide (Bumex) 1 mg PO DAILY [facility] Last Admin: 06/12/17 16:24 Dose: Not Given Folic Acid (Folic Acid) 1 mg PO DAILY [facility] Last Admin: 06/12/17 16:26 Dose: Not Given Heparin Sodium (Porcine) (Heparin Sodium) 5,000 units SUBCUT Q8HR [facility] Last Admin: 06/12/17 05:51 Dose: Not Given Insulin Aspart (Novolog) 0 unit SUBCUT TIDAC [facility] PRN Reason: Protocol Last Admin: 06/12/17 21:32 Dose: Not Given Lactulose (Cephulac) 20 gm PO Q6H [facility] Last Admin: 06/12/17 05:51 Dose: 20 gm Lactulose (Cephulac) 20 gm PO Q4H [facility] Last Admin: 06/12/17 21:31 Dose: Not Given Omeprazole (Omeprazole) 20 mg PO ACBREAKFAST [facility] Last Admin: 06/12/17 05:51 Dose: 20 mg Polysaccharide Iron Complex (Ferrex 150) 150 mg PO DAILY [facility] Last Admin: 06/12/17 16:26 Dose: Not Given Potassium Chloride (Klor-Con 10) 20 meq PO DAILY [facility] Last Admin: 06/12/17 16:27 Dose: Not Given Spironolactone (Aldactone) 25 mg PO BID [facility] Last Admin: 06/12/17 16:23 Dose: Not Given - Exam Quality Assessment: DVT Prophylaxis. No: Supplemental Oxygen, Urine Catheter General: Other (very confused) HEENT: Pupils Equal, Mucous Membr. Moist/[place] Neck: Supple. No: Lymphadenopathy Lungs: Clear to Auscultation, Normal Respiratory Effort Cardiovascular: Regular Rate, Regular Rhythm, Murmurs GI/Abdominal Exam: Normal Bowel Sounds, Non-Tender, No Distention (Male) Exam: Deferred Back Exam: Normal Inspection, Full Range of Motion Extremities: Normal Inspection. No: Pedal Edema Skin: Warm, Dry, Intact Neurological: No New Focal Deficit Psy/Mental Status: Alert, Other (confused) - Problem List & Annotations (1) Acute encephalopathy SNOMED Code(s): 1444874 Code(s): G93.40 - ENCEPHALOPATHY, UNSPECIFIED Status: Acute Current Visit : Yes (2) Altered mental status, unspecified SNOMED Code(s): 666097790 Code(s): R41.82 - ALTERED MENTAL STATUS, UNSPECIFIED Status: Acute Current Visit: Yes Qualifiers: Altered mental status type: disorientation Qualified Code(s): R41.0 - Disorientation, unspecified (3) Cirrhosis SNOMED Code(s): 23411099 Code(s): K74.60 - UNSPECIFIED CIRRHOSIS OF LIVER Status: Acute Current Visit: Yes Qualifiers: Hepatic cirrhosis type: unspecified hepatic cirrhosis Ascites presence: with ascites Qualified Code(s): K74.60 - Unspecified cirrhosis of liver (4) Hyperammonemia SNOMED Code(s): 3392576 Code(s): E72.20 - DISORDER OF UREA CYCLE METABOLISM, UNSPECIFIED Status: Acute Current Visit: Yes - Problem List Review Problem List Initiated/Reviewed/Updated: Yes - Plan Plan:: This is 77 y/O M admitted with hepatic encephalopathy Acute encephalopathy likely due to acute hepatic encephalopathy The pt is confused and Lethargic -He speaks but the content of spech does not make sense -Dr. Hansen' s Discussed with Abimael Campos his Nephew and and family meeting took place all issues and prognosis were discussed and he will not be a candidate for Liver Transplant and he is at End stage Liver Failure -He is now on Comfort measure and will continue IV morphine PRN for pain and respiratory distress and stopped all his oral medication -Will give Ativan 0.5 mg IV q6 hrs PRN for anxiety -Will continue Atropine eye drops to be used orally for excess secretion -If he pass through the weekend then will be switch to swing bed on Thursday
[2017-06-14] MEDS: Morphine 2 MG/ML Syringe IVPUSH PRN ×3 (08:31→21:02)
[2017-06-14] MEDS: Sodium Chloride 0.9% 10 ML Syringe FLUSH PRN ×3 (08:32→21:03)
--- NOTE | 2017-06-14 12:53 | PCM.PN ---
- General Info Date of Service: 06/14/17 Admission Dx/Problem (Free Text): Pt was admitted with : confusion, with hepatic encephalopathy Subjective Update: The patient continue to be confused and lethargic, he is awake and talking but not responding to the question asked, but he talking better today than yesterday. Functional Status: Reports: Pain Controlled, Other (on comfort care) - Review of Systems General: Denies: Fever, Chills HEENT: Denies: Sinus Congestion, Sore Throat Pulmonary: Denies: Shortness of Breath, Cough, Sputum, Wheezing Cardiovascular: Denies: Chest Pain Gastrointestinal: Denies: Abdominal Pain, Nausea, Vomiting Genitourinary: Denies: Dysuria, Pain Musculoskeletal: Denies: Shoulder Pain, Leg Pain, Foot Pain Skin: Denies: Cyanosis, Jaundice, Bruising, Rash Neurological: Reports: Confusion, Trouble Speaking Psychiatric: Reports: Confusion - Patient Data Vitals - Most Recent: Last Vital Signs Temp 36.2 C 06/14/17 08:00 Pulse 79 06/14/17 08:00 Resp 20 06/14/17 08:00 BP 144/46 H 06/14/17 08:00 Pulse Ox 100 06/14/17 08:00 Weight - Most Recent: 75.296 kg I&O - Last 24 Hours: Intake & Output 06/13/17 06/14/17 06/14/17 22:59 06:59 14:59 Intake Total 400 50 120 Balance 400 50 120 Med Orders - Current: Current Medications Atropine Sulfate (Atropine 1% Ophth Soln) 0 ml SL Q2H PRN PRN Reason: Other Lorazepam (Ativan) 0.5 mg IVPUSH Q6H PRN PRN Reason: Anxiety Morphine Sulfate (Morphine) 2 mg IVPUSH Q4H PRN PRN Reason: Other Last Admin: 06/14/17 08:31 Dose: 2 mg Sodium Chloride (Saline Flush) 10 ml FLUSH ASDIRECTED PRN PRN Reason: Keep Vein Open Last Admin: 06/14/17 08:32 Dose: 10 ml Discontinued Medications Bumetanide (Bumex) 1 mg PO DAILY [facility] Last Admin: 06/12/17 16:24 Dose: Not Given Folic Acid (Folic Acid) 1 mg PO DAILY [facility] Last Admin: 06/12/17 16:26 Dose: Not Given Heparin Sodium (Porcine) (Heparin Sodium) 5,000 units SUBCUT Q8HR [facility] Last Admin: 06/12/17 05:51 Dose: Not Given Insulin Aspart (Novolog) 0 unit SUBCUT TIDAC [facility] PRN Reason: Protocol Last Admin: 06/12/17 21:32 Dose: Not Given Lactulose (Cephulac) 20 gm PO Q6H [facility] Last Admin: 06/12/17 05:51 Dose: 20 gm Lactulose (Cephulac) 20 gm PO Q4H [facility] Last Admin: 06/12/17 21:31 Dose: Not Given Omeprazole (Omeprazole) 20 mg PO ACBREAKFAST [facility] Last Admin: 06/12/17 05:51 Dose: 20 mg Polysaccharide Iron Complex (Ferrex 150) 150 mg PO DAILY [facility] Last Admin: 06/12/17 16:26 Dose: Not Given Potassium Chloride (Klor-Con 10) 20 meq PO DAILY [facility] Last Admin: 06/12/17 16:27 Dose: Not Given Spironolactone (Aldactone) 25 mg PO BID [facility] Last Admin: 06/12/17 16:23 Dose: Not Given - Exam Quality Assessment: No: Supplemental Oxygen, Urine Catheter General: Alert, No Acute Distress, Other (on comfort care) HEENT: Pupils Equal, Mucous Membr. Moist/[place] Neck: Supple Lungs: Clear to Auscultation, Normal Respiratory Effort Cardiovascular: Regular Rate, Regular Rhythm GI/Abdominal Exam: Normal Bowel Sounds, Soft, Non-Tender. No: Guarding, Rebound (Male) Exam: Deferred Back Exam: Normal Inspection Extremities: Normal Inspection, No Pedal Edema Skin: Warm, Dry, Intact Neurological: Other (confused) Psy/Mental Status: Alert, Other (not oriented, confused) - Problem List & Annotations (1) Acute encephalopathy SNOMED Code(s): 8425324 Code(s): G93.40 - ENCEPHALOPATHY, UNSPECIFIED Status: Acute Current Visit : Yes (2) Altered mental status, unspecified SNOMED Code(s): 439592268 Code(s): R41.82 - ALTERED MENTAL STATUS, UNSPECIFIED Status: Acute Current Visit: Yes Qualifiers: Altered mental status type: disorientation Qualified Code(s): R41.0 - Disorientation, unspecified (3) Cirrhosis SNOMED Code(s): 87467655 Code(s): K74.60 - UNSPECIFIED CIRRHOSIS OF LIVER Status: Acute Current Visit: Yes Qualifiers: Hepatic cirrhosis type: unspecified hepatic cirrhosis Ascites presence: with ascites Qualified Code(s): K74.60 - Unspecified cirrhosis of liver (4) Hyperammonemia SNOMED Code(s): 8151285 Code(s): E72.20 - DISORDER OF UREA CYCLE METABOLISM, UNSPECIFIED Status: Acute Current Visit: Yes - Problem List Review Problem List Initiated/Reviewed/Updated: Yes - Plan Plan:: This is 77 y/O M admitted with hepatic encephalopathy and End stage Liver Disease Acute encephalopathy likely due to acute hepatic encephalopathy The pt is confused and Lethargic -He speaks but the content of spech does not make sense but talking more today -Dr. Hansen' s Discussed with Abimael Campos pt's Nephew and and family meeting took place all issues and prognosis were discussed and he will not be a candidate for Liver Transplant and he is at End stage Liver Failure -He is now on Comfort measure and will continue IV morphine PRN for pain and respiratory distress and stopped all his oral medication -continue Ativan 0.5 mg IV q6 hrs PRN for anxiety -Will continue Atropine eye drops to be used orally for excess secretion -If he pass through the weekend then he will be switch to swing bed on Thursday)
[2017-06-15] MEDS: Morphine 2 MG/ML Syringe IVPUSH PRN ×2 (02:34→06:35)
[2017-06-15] MEDS: Sodium Chloride 0.9% 10 ML Syringe FLUSH PRN (22:19)
[2017-06-16] MEDS: Sodium Chloride 0.9% 10 ML Syringe FLUSH PRN ×2 (00:22→00:32)
[2017-06-16] MEDS: Morphine 2 MG/ML Syringe IVPUSH PRN (00:30)
--- NOTE | 2017-06-16 07:48 | PN ---
DATE: 06/15/2017 INTERVAL HISTORY: Mr. Patel is a 77-year-old gentleman with multiple medical problems including cirrhosis with ascites and hepatic encephalopathy. He has a history of duodenal adenocarcinoma and is status post duodenal stent, chemotherapy, and radiation therapy. He has been in decline. He was admitted last week with an ammonia level of 153, despite the fact that he had been consistently on his lactulose. Ammonia level improved to 78, but however, at the end of last week had gone back up to 248, again while on lactulose. Clinically, he has declined significantly. Lab work shows a persistent anemia. Renal function has deteriorated as well. After much discussion with his family at the end of the week, it was decided that his code status would be changed to comfort care, and we would focus simply on management of his needs and pain management until the end of his life. We started him on IV comfort medications including morphine sulfate, Ativan, as well as atropine eye drops for oral secretions. Nursing staff has given these intermittently over the weekend. Appetite has been fair to poor. At times, he will wake up and participate with those talking to him, but the rest of the time he is confused, calling out. He makes no effort to get out of bed or walk. He sleeps most of the time. He has been noted to have small periods of apnea. Review of his vital signs show that they remain relatively stable. No further lab work has been ordered. PHYSICAL EXAMINATION: General: He is lying in bed. He appears comfortable. At times, he will call out. Attempts to speak with him are not productive and he does not participate. The contents of his speech are garbled and incoherent. Vital Signs: Blood pressure was 121/43 and pulse 95. At the time of the exam before he woke up, respiratory rate was actually 6 to 8 breaths a minute with approximately 10-second periods of apnea. Later when he was more awake, respiratory rate was more in the normal range, and he was afebrile. Oxygen saturations remain in the high 90% on room air. HEENT: unremarkable. Chest: Shows diminished bilateral breath sounds. Heart: Shows regular rate and rhythm. Abdomen: Soft and benign. Neurological: He is moving extremities spontaneously, but is confused, consistent with his history of encephalopathy. CURRENT MEDICATIONS are limited to: 1. IV morphine. 2. IV lorazepam. 3. Atropine orally. Review of his MAR shows at this time he is receiving the morphine 2 to 3 times within a 24-hour period. He has not received any IV Ativan. ASSESSMENT AND PLAN: Mr. Patel is in decline, but continues to be relatively stable. Tomorrow, we will discuss this again with the swing bed coordinator for a final decision regarding disposition. There is a bed available at the [facility], and we may need to consider transfer to the half-way unless it is possible to keep him in swing bed and continue comfort care there. We will discuss this again in the morning. No other changes are made today. [facility] /[id number] AMY
[2017-06-16 07:52] VITALS: BP 139/58
--- NOTE | 2017-06-22 23:47 | DISCH ---
DISCHARGE DIAGNOSES: 1. [id number] liver failure with cirrhosis. 2. Hepatic encephalopathy secondary to above. 3. Chronic kidney disease. 4. Adenocarcinoma of the duodenum, December 2016. 5. Anemia, normocytic. 6. Hypoalbuminemia. 7. Type 2 diabetes, relatively well controlled. 8. Cerebrovascular disease, chronic. 9. Failure to thrive and ongoing decline. 10.Hemoccult-positive stool following melena. 11.Will be admitted to swing bed for comfort care. BRIEF HISTORY OF PRESENT ILLNESS: Mr. Patel that is a 77-year-old gentleman with a history of adenocarcinoma of the duodenum, diagnosed in early 2016. He had a duodenal stent placed and had radiation and chemotherapy. He has decided to forego any further treatment. He also has a history of end-stage liver disease with cirrhosis and hepatic encephalopathy due to elevated ammonia levels. On the day of admission, he was on his way to [place] with his brother for a followup PET scan for his duodenal cancer. His brother stated he was confused the whole way over. The brother turned around and came back to [place] but did not seek any care in [place]. He went straight to the [facility]. On arrival there, Mr. Patel was confused. Staff checked his blood sugar while he was still in the vehicle, and allegedly, it was 22, however, on arrival of the ambulance, blood sugar was found to be much higher. He was brought to emergency room for further management. In the emergency room, he was found to have an ammonia level of 153, despite the fact that he had been on his lactulose on a daily basis. He was admitted for further management. PERTINENT LABS AND X-RAYS: CBC at the time of admission showed hemoglobin and hematocrit of 10.4 and 31.1. On the day of discharge to swing bed, hemoglobin and hematocrit were 9.2 and 27.5. BUN and creatinine were 25 and 1.4 with a GFR of 49 on admission. These numbers had declined to 25 and 1.7 with a GFR of 39 at the time of discharge. Ammonia level was 153 on admission and went down to 78 the following morning, but rebounded back to 248. Again, he remained on the lactulose. Blood sugars were monitored during the admission and for the most part were well controlled and under 200. A CT scan of the head was performed without contrast on the day of admission, due to his confusion. This showed chronic periventricular microvascular disease. No hemorrhage and no acute intracranial findings. Two sets of blood cultures remained without growth after 5 days. Stool was tested during this admission for occult blood following a melena stool, and it was Hemoccult positive. HOSPITAL COURSE: Mr. Patel was admitted. His usual medications were continued including lactulose. He was placed on subcu heparin initially for VTE prophylaxis. Platelet count was slightly reduced at the time of admission. On the evening of June 11, he passed a large dark foul-smelling stool which was Hemoccult positive. Hemoglobin and hematocrit went down from 10.4 and 31 to 9.1 and 27. A type and screen and hold was ordered, but no transfusions were given. During the admission, his hepatic encephalopathy seemed to be worsening. He was gradually becoming more confused and incoherent at times. He was lethargic. At times, he was non-verbal. Other times, he would call out. The content of his speech was confused. Repeat ammonia level had risen to 248. These findings would seem to suggest an advance of his liver disease. Renal function continued to decline, and he appeared to be developing hepatorenal failure. We met with Mr. Patel's family including his sister, Livier Campos, her son , and Mr. Patel's brother, Sarwat. We were able to agree that he was in decline and had been in decline for the last 2 months. I had spoken with Mr. Patel's primary care physician, Dr. Wiley. I was able to tell the family that I had spoken with him and reviewed the findings and reassured him that Dr. Wiley agreed with the ongoing diagnosis and treatment. Based on this long discussion, the family felt that the best thing we could do at this point was to elect comfort care. Therefore, Mr. Patel will be discharged today from acute care and admitted to swing bed for comfort care. His meds will be reviewed, and non-necessary medications will be discontinued, and we will focus on comfort medications. His clinical data is reviewed. His oral intake is reduced. His fluid intake is also reduced. He is incontinent of bowel and bladder. PHYSICAL EXAMINATION: VITAL SIGNS: Review of his vital signs shows to be relatively stable. Blood pressure 146/42, pulse 77, respiratory rate 20, oxygen saturation 100% on room air. He is afebrile. GENERAL: He is lying in bed. He appears comfortable in no distress. He was confused. At times, she will call out, but his words really did not make any sense. HEENT: Unremarkable. CHEST: Showed diminished bilateral breath sounds. Yesterday, he had been noted to have respiratory rate of 6 to 8 breaths per minute with approximately 10 second periods of apnea. This was not seen today. HEART: Showed regular rate and rhythm. ABDOMEN: Soft and benign. EXTREMITIES: Showed no edema. There is extensive bruising on the upper extremities. NEUROLOGIC: He was moving all extremities spontaneously but was quite confused. IMPRESSION: A 77-year-old gentleman with history of advanced liver disease, now appears to be in end-stage hepatic failure with developing renal failure as well. After meeting with the family, it has been decided that he will be admitted to swing bed for comfort care. PLAN: 1. Discharge from acute care today and admit to swing bed. 2. Medications will be reviewed and unnecessary medications will be discontinued, and we will focus on his comfort. 3. Code status. Currently, he is DNR/DNI and will be changed to DNR/DNI/comfort measures. CONDITION AT THE TIME OF DISCHARGE: 1. From acute care to swing: Relatively stable. 2. Prognosis is poor. [facility] /[id number] MTDD
== END 2017-06-16 12:10 | disposition swing bed (61) | DRG 442 ==
LOC: DL.ED 21:43 → UNDOADMOB 23:12 → DL.MS 23:12 → OBSVTOIN 06-10 11:10 → DL.MS 06-11 08:08 → UNDODISIN 06-16 12:10
PROVIDERS: ADMIT Internal Medicine; ATTEND Internal Medicine
DX: E72.4 Disorders of ornithine metabolism (principal); K72.00 Acute and subacute hepatic failure without coma; E72.20 Disorder of urea cycle metabolism, unspecified; C17.0 Malignant neoplasm of duodenum; I10 Essential (primary) hypertension; I13.0 Hypertensive heart and chronic kidney disease with heart failure and stage 1 through stage 4 chronic kidney disease, or unspecified chronic kidney disease; K72.10 Chronic hepatic failure without coma; R41.0 Disorientation, unspecified; Z66 Do not resuscitate; K74.60 Unspecified cirrhosis of liver; S51.012A Laceration without foreign body of left elbow, initial encounter; Z79.4 Long term (current) use of insulin; Z79.899 Other long term (current) drug therapy; Z91.81 History of falling; D69.6 Thrombocytopenia, unspecified; D64.9 Anemia, unspecified; E88.09 Other disorders of plasma-protein metabolism, not elsewhere classified; I67.9 Cerebrovascular disease, unspecified; R62.7 Adult failure to thrive; R19.5 Other fecal abnormalities; Z51.5 Encounter for palliative care; H54.7 Unspecified visual loss; I50.9 Heart failure, unspecified; N18.9 Chronic kidney disease, unspecified; E11.22 Type 2 diabetes mellitus with diabetic chronic kidney disease; K21.9 Gastro-esophageal reflux disease without esophagitis; K59.09 Other constipation; D50.9 Iron deficiency anemia, unspecified
CPT/HCPCS: 36415 ×2; 70450; 80048; 80053; 80076; 82140 ×2; 82150; 82962 ×2; 83605; 83690; 85025 ×2; 85610; 87040 ×2; 93005; 93010; 96372; 99284; 99285; A9270 ×8; G0378; J1644; 81001; 82272; 82565; 84520; 85014; 85018; 86850; 86900; 86901; 97162-GP; 97166-GO; 99223; J1815-GY; J2270; J7050

== ENCOUNTER 2017-06-16 11:38 | Inpatient (IN) | payer MEDICARE, BC ==
[2017-06-16] MEDS ORDERED: Atropine 1% Ophth Soln 5 ML BOTTLE SL PRN (12:38)
[2017-06-16] MEDS ORDERED: Acetaminophen 650 MG Supp RECTAL PRN (12:39)
[2017-06-16] MEDS ORDERED: Bisacodyl 10 MG Supp RECTAL PRN (12:39)
[2017-06-16] MEDS: LORazepam 2 MG/ML Syringe IVPUSH PRN (15:27)
[2017-06-16] MEDS: Morphine 2 MG/ML Syringe IVPUSH PRN ×2 (15:38→22:20)
[2017-06-17] MEDS: Morphine 2 MG/ML Syringe IVPUSH PRN ×2 (06:43→19:54)
--- NOTE | 2017-06-17 13:59 | HP ---
REASON FOR ADMISSION TO SWING BED: To continue comfort care in this terminally ill patient. HISTORY OF PRESENT ILLNESS: Mr. Patel is a 77-year-old gentleman with multiple medical problems. He initially presented for admission on 06/10. He and his brother had driven to [place] as Mr. Patel had an appointment for a PET scan to follow up on his duodenal adenocarcinoma. He was very confused on the drive over. They never got to the hospital. The brother turned around and drove all the way back to [place] to [facility]. On arrival at [facility], he was quite confused. His blood sugar was checked. Initial report was that the blood sugar was only 22, but when EMS arrived blood sugar was found to be much higher. He was brought to the Emergency Department for further evaluation. Mr. Patel has been admitted multiple times before with the finding of hepatic encephalopathy due to elevated ammonia level. On the day of admission to acute care, he was found to have an elevated ammonia level of 153. The following morning it had gone down, but the next day it had increased to almost 250 while on lactulose. At that point, we did sit down and meet with the family to discuss Mathieu's overall situation and the fact that he is in decline with increasing signs of hepatic failure. PAST MEDICAL HISTORY: Includes: 1. 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 On 12/30/2016, he had a duodenal stent placed at the [facility]. He was then admitted to [facility] from 01/21 to 01/28, and transferred to [facility] from 01/28 to 02/27. He went home for that weekend and was admitted to [facility] on 03/02. He fell overnight and was admitted to [facility] on 03/03 and then to [facility] residential on 03/06. He remained there until 04/14 at which time he moved to [facility] assisted living. Other past medical history includes generalized weakness and debility with high fall risk. He has had a number of falls with extensive bruising and skin injury, but no fractures of any type. He has cirrhosis of the liver with ascites, pancytopenia, and edema. He has had multiple large volume paracenteses. He has a history of chronic kidney disease, stage III. Type 2 diabetes without complications. Hepatic encephalopathy. Weight loss. Hypoalbuminemia. Hyponatremia. Hyperammonemia. PAST SURGICAL HISTORY: Upper and lower endoscopy on several occasions. Renal lithotripsy. Cystoscopy in March 2015. Inguinal hernia repair in 2015. SOCIAL HISTORY: He is single. He has no children. 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 He has never smoked cigarettes. Does not currently drink alcohol. FAMILY HISTORY: Family history is noncontributory to the present illness and the patient's age. IMMUNIZATION HISTORY: He is up-to-date on Influenza; he had high dose on 08/07/2016. PCV13 on 03/16/2017. PPV23 on 08/31/2007. Zoster on 09/14/2009. Tdap on 03/03/2017. REVIEW OF SYSTEMS: While in acute care, Mr. Patel has become less responsive and more confused. He often cries out. The content of his speech is garbled and difficult to understand; although intermittently he will be somewhat clear minded, but this is for very short amounts of time. Appetite is poor. He is only eating small portions of his meals. At this point he does not feed himself and needs to be fed by staff. He is incontinent of urine. He has not had a bowel movement now for several days, but he is also no longer on the lactulose, and he has not had much in the way of oral intake. He did have a stool several days ago, overnight on June 11. He produced a large dark foul-smelling stool that was Hemoccult positive. Hemoglobin and hematocrit also declined following that stool. This raised the question of whether he could have a possible esophageal bleed secondary to his portal hypertension and cirrhosis. During his acute stay, his encephalopathy seemed to be worsening as well. He sleeps good portion of the time. MEDICATIONS: Current medications are reviewed. His usual medications have been stopped, and he is currently on: 1. IV push morphine p.r.n. 2. Lorazepam IV push p.r.n. 3. Dulcolax rectal suppositories. 4. Atropine sulfate eyedrops being given sublingually for excess oral secretions. 5. He has rectal Tylenol order. 6. We are not using any pharmacological VTE prophylaxis because of his increased risk of bleeding. ALLERGIES: No known allergies. PHYSICAL EXAMINATION: General: He is lying quietly in bed. He is sleeping most of the time. He is difficult to arouse at times, but other times will wake up and call out. Vital Signs: Blood pressure 141/45, pulse 82 and regular, respiratory rate 20, oxygen saturation 98% on room air. Height 5 feet 8 inches. Weight 166 pounds. HEENT: Unremarkable. ENT was clear. No adenopathy. No JVDs or bruits. Chest: Showed diminished bilateral breath sounds. Heart: Showed regular rate and rhythm. Abdomen: Soft and benign with some mild tenderness in the right upper quadrant. Extremities: Showed extensive bruising and edema of the upper extremities. Lower extremities are unremarkable. Neurologic: He was for the most part was unresponsive and confused. After meeting with his family, we opted for comfort care and he was admitted to swing bed. Life expectancy is short. He currently is on comfort meds with IV morphine, IV lorazepam, and atropine. Our plan is to keep him as comfortable as possible. Family is in agreement with this and they are in on a daily basis and feel that he is in the right place. We will continue the present management. CONDITION AT TIME ADMISSION: Relatively stable. CODE STATUS: DNR/DNI/comfort measures. [facility] /[id number] MTDZonia
[2017-06-17] MEDS: LORazepam 2 MG/ML Syringe IVPUSH PRN (14:13)
[2017-06-17] MEDS: Sodium Chloride 0.9% 10 ML Syringe FLUSH PRN (19:54)
[2017-06-18] MEDS: Sodium Chloride 0.9% 10 ML Syringe FLUSH PRN ×4 (01:09→20:15)
[2017-06-18] MEDS: Morphine 2 MG/ML Syringe IVPUSH PRN ×4 (01:10→20:12)
[2017-06-19] MEDS: Morphine 2 MG/ML Syringe IVPUSH PRN ×2 (03:03→21:53)
[2017-06-19] MEDS: Sodium Chloride 0.9% 10 ML Syringe FLUSH PRN (21:54)
[2017-06-19] MEDS: LORazepam 2 MG/ML Syringe IVPUSH PRN (21:55)
[2017-06-20] MEDS: LORazepam 2 MG/ML Syringe IVPUSH PRN (11:38)
[2017-06-20] MEDS: Morphine 2 MG/ML Syringe IVPUSH PRN (11:38)
[2017-06-20] MEDS: Sodium Chloride 0.9% 10 ML Syringe FLUSH PRN (11:40)
[2017-06-21] MEDS: Sodium Chloride 0.9% 10 ML Syringe FLUSH PRN ×3 (02:30→22:36)
[2017-06-21] MEDS: LORazepam 2 MG/ML Syringe IVPUSH PRN (13:11)
[2017-06-22] MEDS: Sodium Chloride 0.9% 10 ML Syringe FLUSH PRN (10:49)
--- NOTE | 2017-06-23 00:06 | DISCH ---
SWING BED DISCHARGE SUMMARY DISCHARGE DIAGNOSES: 1. Hepatorenal failure. 2. 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 3. Guaiac positive stools during this admission. 4. Anemia. 5. History of adenocarcinoma of the duodenum in December 2017. 6. Type 2 diabetes, controlled currently without medications. 7. Hepatic encephalopathy secondary to elevated ammonia levels and end-stage liver disease. 8. Chronic kidney disease. BRIEF HISTORY OF PRESENT ILLNESS: Mr. Patel is a 77-year-old gentleman who was admitted [facility] bed following an acute stay. He has a history of end- stage liver disease with ascites and hepatic encephalopathy. When he presented for acute admission on June 10, he was confused. Initially, he was thought to be hypoglycemic, but this did not appear to be the case when he was further evaluated. He has a long history of elevated ammonia levels and hepatic encephalopathy. On admission to acute care, his ammonia level was 153, it decreased slightly, but during the admission otilio to 248, despite the use of daily lactulose. During his acute stay, he passed a large foul-smelling dark stool consistent with melena. The stool was Hemoccult positive. There was a slight drop in the hemoglobin and hematocrit, but he did not require transfusion. He remained confused. Appetite and oral intake were poor. He was incontinent of bowel and bladder. At times, his mentation will clear up somewhat, but otherwise he was confused. Occasionally calling out. The content of his speech was garbled and incoherent at times. For the most part, he was oriented only to himself. During his acute admission, we met with this family reviewing the course of his illness. It was decided together with the family that at this point we would opt for comfort care. Following acute admission, Mr. Patel was admitted to [facility] for ongoing end-of-life care. His usual medications were stopped. He was continued on IV morphine, IV Ativan, and atropine ophthalmic solution for excess oral secretions. He has remained relatively stable and has not declined further, and because his need for medications by the IV route had diminished, it was agreed upon that he would be transferred to detention. He had been at [facility] in April and then returned to assisted living. At this point, he cannot return to assisted living because of his marked confusion and his need for complete care. His appetite has diminished quite a bit. At this point, he needs to be fed most meals. He really cannot organize himself to feed himself. Vital signs have remained relatively stable. LABORATORY DATA: Repeat labs during this admission showed a hemoglobin and hematocrit of 7.5 and 23.1. His last hemoglobin and hematocrit on June 12 were 9.2 and 27.5. There are no plans to transfuse him further. BUN and creatinine were 47 and 1.3, with a GFR of 54, and a creatinine clearance of 47. Ammonia level was 66. On admission to acute care, ammonia level had been 153, went down to 78 and otilio again to 248 on June 12. This lower ammonia level does not indicate any improvement in his clinical status or his hepatic failure. It more likely reflects the fact that he has not been eating and taking in protein. It also probably reflects advancement of his liver disease. No further labs are planned. No imaging studies were performed during this admission. DISCHARGE MEDICATIONS: We will discontinue medications by the IV route and remove access from his central line. 1. He will receive morphine sulfate solution 5 mg every 4 hours p.r.n. for pain or respiratory distress. 2. Lorazepam 0.5 mg every 6 hours p.o./sublingual for anxiety or agitation. 3. Atropine eyedrops will be used every 2 hours p.r.n. for excess oral secretions. 4. We will use Dulcolax suppositories for constipation. 5. Tylenol rectal for pain and fever. He has been eating a mechanical soft diet, and [facility]. He will need to be at a feeding table for assistance as he no longer seems able to feed himself. Code status. We will continue as comfort care with DNR/DNI in place. The plan was discussed with his sister, Livier Campos, who is also Mathieu's POA. Family is in agreement with his comfort care status. During the acute admission, his primary care provider, Dr. Wiley, was informed of his decline and poor prognosis. He will be discharged to [facility] on the morning of June 23, 2017. PHYSICAL EXAMINATION: Vital Signs: Review of his clinical data shows relatively stable vital signs. Blood pressure 128/52, pulse 86, respiratory rate 20, oxygen saturation 99% on room air, and he remains afebrile. HEENT: Clear, but diminished bilateral breath sounds. Heart: Regular rate and rhythm. Abdomen: Soft, benign, and nontender. Extremities: No edema. Upper extremities showed extensive bruising. Neurologic: Moving spontaneously, but confused and disoriented. CONDITION AT THE TIME OF DISCHARGE from swing bed and admission to [facility] detention: Relatively stable. PROGNOSIS: Poor. He is being admitted for end-of-life care. [facility] /[id number] MTDD
[2017-06-23 07:50] VITALS: BP 134/46
== END 2017-06-23 10:15 | DRG 442 ==
LOC: DL.MS 12:11 → UNDOADMIN 12:11 → DL.MS 12:39
PROVIDERS: ADMIT Internal Medicine; ATTEND Internal Medicine
DX: K72.90 Hepatic failure, unspecified without coma (principal); R18.8 Other ascites; D61.818 Other pancytopenia; E87.1 Hypo-osmolality and hyponatremia; Z51.5 Encounter for palliative care; Z66 Do not resuscitate; K74.60 Unspecified cirrhosis of liver; E11.22 Type 2 diabetes mellitus with diabetic chronic kidney disease; N18.3 Chronic kidney disease, stage 3 (moderate); E88.09 Other disorders of plasma-protein metabolism, not elsewhere classified; R19.5 Other fecal abnormalities; D64.9 Anemia, unspecified; Z79.899 Other long term (current) drug therapy
CPT/HCPCS: 36415; 82140; 82565; 84520; 85014; 85018; A9270-GY; J2060; J2270; J7050